=== PATIENT | female | born 1940 | race Caucasian/White ===

== ENCOUNTER 2020-01-24 11:46 | Outpatient (CLI) | payer MEDICARE, OTHER, SELFPAY ==
--- NOTE | ~2020-01-24 | XR_ITS ---
EXAMINATION: XR abdomen/kub 1V EXAM DATE: 01/24/2020 12:09 INDICATION: Constipation, abdominal pain. Bloating. TECHNIQUE: Frontal projection of the upper abdomen, frontal projection lower abdomen/pelvis for inter pretation. Comparison is made to prior examination from 06/17/2011. FINDINGS: There are cholecystectomy clips. There is expected amount of colonic stool and gas. No s mall bowel dilation, nonobstructive bowel gas pattern. There are no suspicious calcifications ident ified. There is no organomegaly suspected. Bilateral hip replacements. IMPRESSION: Unremarkable abdomen x-ray exam. Reviewed, dictated and finalized at location A. 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
== END 2020-01-24 11:47 | disposition home or self-care (01) ==
PROVIDERS: PCP Family Medicine; Visit Provider Physician Assistant
DX: K59.00 Constipation, unspecified (principal)
CPT/HCPCS: 74018

== ENCOUNTER 2020-10-13 10:54 | Emergency (ER) | payer MEDICARE, OTHER, SELFPAY ==
--- NOTE | ~2020-10-13 | XR_ITS ---
XR foot RT min 3V 10/13/2020 11:10 Indication: Right foot pain after recent fall Procedure: 4 views right foot Comparison: No prior studies for comparison. Findings: There is an acute minimally displaced extra-articular spiral fracture right fifth metatarsa l. Mild osteoarthritis of the first MTP joint. Osteopenia. There is mild polyarticular osteoarthritis . There is a small degenerative calcaneal enthesophyte. Impression: 1: Acute minimally displaced extra-articular spiral fracture right fifth metatarsal. Reviewed, dictated and finalized at location A. Impression: 1: Acute minimally displaced extra-articular spiral fracture right fifth metata rsal.
[2020-10-13 11:08] VITALS: BP 135/66; PULSE 78; RESP 16; TEMP 36.4; O2SAT 99
--- NOTE | 2020-10-13 12:00 | ED.GENADULT ---
HPI - General Adult General Chief complaint: Extremity Injury, Lower Stated complaint: rt foot injury Source: patient and RN notes reviewed Mode of arrival: ambulatory Limitations: no limitations History of Present Illness HPI narrative: 80-year-old female presents today with complaints of right foot pain, bruising, and swelling for the past 7 days. [place] reports falling out of the bathtub 1 week ago injuring RT foot, improvement in swelling and bruising, pain constant with bearing weight. Post-op shoe, brace, elevation, rest, and Tylenol last today at 08:00 with some relief. Hurts to bear weight. No radiation of pain. No numbness, tingling, or loss of mobility. Exacerbating factor applying weight. Denies inability to bear weight. Denies suspect foreign body. Denies fever or chills. The patient reports she has not been diagnosed with COVID-19. The patient reports she received 2 Moderna COVID-19 vaccines. The patient reports she is not waiting for the results of a COVID-19 lab test. The patient reports she does not have weakness, fatigue, or myalgia. The patient reports she does not have a new or worsening cough or shortness of breath. The patient reports she does not have any rhinorrhea, congestion, loss of taste, sore throat, nausea, vomiting, abdominal pain, and diarrhea. Denies recent traveling. Denies concerns for COVID-19 or exposures. At this time, the patient is not suspected of having COVID-19. Some parts of this dictation were generated by voice recognition software and may contain typographical and/or grammatical inaccuracies. Related Data Home Medications Medication Instructions Recorded Confirmed cholecalciferol (vitamin D3) 25 1,000 unit PO DAILY 04/07/19 mcg (1,000 unit) capsule multivitamin 1 tablet PO DAILY 04/07/19 Allergies Allergy/AdvReac Type Severity Reaction Status Date / Time No Known Allergies Allergy Unverified 01/24/20 10:58 Review of Systems Review of Systems: CONSTITUTIONAL: Denies fever, chills, sweats. EYES: Denies visual changes, redness, discharge. ENT: Denies rhinorrhea, congestion, sore throat, otalgia. CARDIOVASCULAR: Denies chest pain, palpitations, edema. RESPIRATORY: Denies dyspnea, wheezing, cough. GASTROINTESTINAL: Denies abdominal pain, nausea, vomiting, diarrhea. SKIN: Denies rash or itching. MUSCULOSKELETAL: Denies acute back pain or myalgia. Complaints of pain, bruising, and swelling to the right foot. NEUROLOGIC: Denies numbness or focal weakness. PSYCHIATRIC: Denies anxiety or depression. All other systems reviewed are negative, except as documented in HPI and below. [facility] Past Medical History Medical History Arthritis Benign reactive hypertension H/O Middleton's palsy Kidney stone Mixed hyperlipidemia Surgical History Surgical History H/O total hip arthroplasty R- with later revision L QUOC recent Hx laparoscopic cholecystectomy Hx of cataract extraction Social History Social History Social History: Smoking status: Never smoker Second hand tobacco smoke exposure: No Alcohol intake: current Drinks per week: 1 Substance use: never Substance use type: does not use Gender identity (if verbalized by the patient): Female Comments At time of signature, agree with the nurse past medical, surgical, social, and family history. There is relevant patient's history pertinent to the presenting complaint, no relevant family history pertinent to the presenting complaint. Exam Narrative: GENERAL: This is a well-nourished, well-developed patient, in no apparent distress. Ambulates with a limp favoring the right lower extremity. HEAD: Normocephalic, atraumatic. EYES: PERRL. Sclera clear/white. Vision is grossly intact. CARDIOVASCULAR: Regular rate and rhythm
== END 2020-10-13 12:28 | disposition home or self-care (01) ==
PROVIDERS: Emergency Provider Nurse Practitioner Family; PCP Family Medicine
DX: S92.351A Displaced fracture of fifth metatarsal bone, right foot, initial encounter for closed fracture (principal); W19.XXXA Unspecified fall, initial encounter; M19.90 Unspecified osteoarthritis, unspecified site; E78.2 Mixed hyperlipidemia
CPT/HCPCS: 73630; 99213; G0463

== ENCOUNTER → 2020-12-25 12:42 | Outpatient (CLI) | payer MEDICARE, OTHER, SELFPAY ==
--- NOTE | ~2020-12-25 | XR_ITS ---
EXAMINATION: XR foot RT min 3V DATE: 12/25/2020 13:31 INDICATION: Nondisplaced fracture of the fifth metatarsal TECHNIQUE: Dorsoplantar, lateral, and 2 oblique views of the right foot were obtained. COMPARISON: 11/13/2020, 10/13/2020 FINDINGS: There is continued remodeling of calcified callus at the distal aspect of the fifth metatar santa at the site of the previously described fracture. Bone alignment is near-anatomic. There is polya rticular osteoarthritis of many interphalangeal joints as well as at the first metatarsophalangeal christal int. No new fracture is identified. The soft tissues are unremarkable. A plantar calcaneal enthesophy te is noted. IMPRESSION: 1. . Metatarsal fracture with routine healing. Reviewed, dictated and finalized at location A.
== END ==
PROVIDERS: PCP Family Medicine; Visit Provider Orthopaedic Surgery
DX: S92.354G Nondisplaced fracture of fifth metatarsal bone, right foot, subsequent encounter for fracture with delayed healing (principal)
CPT/HCPCS: 73630

== ENCOUNTER → 2021-05-30 14:42 | Outpatient (CLI) | payer MEDICARE, OTHER, SELFPAY ==
--- NOTE | ~2021-05-30 | DEXA_ITS ---
Bone Density Report Name: TRENTON MANJARREZ Age: 80 Sex: Female Ethnicity: White Date of : 1940 Indication: osteopenia; prior fracture; hysterectomy;postmenopausal Referring Provider: SUPRIYA PATINO Study: Bone densitometry was performed. Exam Date: May 30, 2021 Accession number: [id number] Bone Density: Region BMD T-score Z-score Classification AP Spine (L1-L4) 0.956 -0.8 2.0 Normal World Health Organization criteria for BMD impression classify patients as: Normal (T-score at or above -1.0), Osteopenia (T-score between -1.0 and -2.5), or Osteoporosis (T-score at or below -2.5). Previous Exams: Region Exam Age BMD T-score BMD Change BMD Change Date g/cm2 vs Baseline vs Previous AP Spine(L1-L4) 05/30/2021 80 0.956 -0.8 -0.014 0.038* 06/11/2015 74 0.917 -1.2 -0.052* -0.052* 07/09/2011 70 0.969 -0.7 *Denotes significance at 95% confidence level, LSC for AP Spine = 0.022 g/cm2 Clinical Information Provided by Patient: Has had a low trauma fracture Has used the following medications: Vitamin D, MTV Has the following medical conditions: Hysterectomy Patient maximum height was 64 Menopause Age: 48 No regular weight bearing exercise Drinks caffeinated beverages Onset of menses at age 10 Number of children 3 Impression: The patient has normal bone mass. The patient has risk factors, including: previous fracture. No significant bone loss was observed. Discussion: BONE DENSITY IS ABOVE THE MINIMUM DESIRABLE LEVEL AT ALL SKELETAL SITES TESTED. This patient?s bone mineral density is above the minimum desirable level (T-score -1.0 or better) at all sites measured. The patient should follow a healthful lifestyle (good nutrition with adequate calcium and vitamin D, and appropriate weight-bearing exercise). Follow-Up: Consider repeating this study in 5 years or sooner if there is some new clinical indication. Reported by: MAU on 05/30/2021 3:01:00 PM. Reviewed, dictated and finalized at location ACecile [facility]
--- NOTE | ~2021-05-30 | MM_ITS ---
EXAMINATION: MM screening christos BI w hailey HISTORY: Screening mammogram TECHNIQUE: Craniocaudal and mediolateral oblique 3-D tomosynthesis images were obtained and synthetic 2-D images were generated. CAD analysis was submitted and interpreted. COMPARISON: 01/21/2014, 07/09/2011 bilateral screening mammogram examinations BREAST PARENCHYMAL COMPOSITION: There are scattered areas of fibroglandular density. FINDINGS: Stable mild fibroglandular asymmetry. Stable small circumscribed node deep in the posterior upper right breast on MLO view since 07/09/2011. There is no evidence of suspicious mass, calcificatio n, or architectural distortion to suggest malignancy in either breast. There has been no suspicious i nterval change. IMPRESSION: 1. No mammographic evidence of malignancy. 2. Recommend routine screening mammography in one year. BI-RADS Category 2: Benign finding(s). Reviewed, dictated and finalized at location A.
== END ==
PROVIDERS: PCP Family Medicine; Visit Provider Family Medicine
DX: Z12.31 Encounter for screening mammogram for malignant neoplasm of breast (principal); Z78.0 Asymptomatic menopausal state
CPT/HCPCS: 77063; 77067; 77080

== ENCOUNTER 2021-11-04 13:53 | Outpatient (CLI) | payer MEDICARE, OTHER, SELFPAY ==
--- NOTE | ~2021-11-04 | XR_ITS ---
XR chest 2V DATE: 11/04/2021 14:17 INDICATION: Cough, wheezing and shortness of breath for 3 weeks. History of hypertension. TECHNIQUE: 2 views COMPARISON: 02/03/2018 two-view chest FINDINGS: Normal heart size. No hilar or mediastinal enlargement. No pulmonary infiltrate or consolid ation, pleural effusion or pulmonary vascular congestion or pneumothorax. Mild bilateral pulmonary hy perinflation. Diffuse osteopenia. Diffuse hepatic skeletal hyperostosis involving particularly the lower thoracic s pine Status post cholecystectomy. IMPRESSION: No active cardiopulmonary disease or significant change since 02/03/2018 Reviewed, dictated and finalized at location B.
== END 2021-11-04 13:54 | disposition home or self-care (01) ==
PROVIDERS: PCP Family Medicine; Visit Provider Physician Assistant
DX: R06.2 Wheezing (principal)
CPT/HCPCS: 71046

== ENCOUNTER 2022-03-22 11:06 | Emergency (ER) | payer MEDICARE, OTHER, SELFPAY ==
--- NOTE | 2022-03-22 11:09 | ED.URI ---
HPI - URI/Sore Throat General Chief Complaint: Upper Respiratory Infection Stated Complaint: HEAD COLD/COUGH/INDIGESTION/DIARRHEA Time Seen by Provider: 03/22/22 11:09 Source: patient and RN notes reviewed History of Present Illness HPI Narrative: Patient is an 81-year-old female who presents to the Urgent Care with complaints of productive cough, loose stools. Patient states that the loose stool started after taking the cough medication and Mucinex. Patient states the Imodium does improve the loose stools which occur approximately once per day. Patient denies any abdominal pain, shortness of breath or chest discomfort. Denies any known fevers, nausea or vomiting. Patient denies any ill exposures. No other acute complaints. No acute distress noted. Patient aware of plan of care. Some parts of this dictation were generated by voice recognition software and may contain typographical and/or grammatical inaccuracies. Related Data Home Medications Medication Instructions Recorded Confirmed cholecalciferol (vitamin D3) 25 1,000 unit PO DAILY 04/07/19 03/22/22 mcg (1,000 unit) capsule multivitamin 1 tablet PO DAILY 04/07/19 03/22/22 budesonide 160 mcg-glycopyr 9 2 inh inhalation BID 11/04/21 mcg-formot 4.8 mcg/actuation HFA inhaler ([employer]) Allergies Allergy/AdvReac Type Severity Reaction Status Date / Time No Known Allergies Allergy Unverified 11/04/21 13:02 Review of Systems Review of Systems: CONSTITUTIONAL: Denies fever, chills, or sweats. EYES: Denies visual changes, redness, or discharge. ENT: Reports postnasal drainage and congestion CARDIOVASCULAR: Denies chest pain, palpitations, or edema. RESPIRATORY: Reports productive cough without dyspnea GASTROINTESTINAL: Reports 1 loose stool per day GENITOURINARY: Denies dysuria or hematuria. SKIN: Denies rash or itching. MUSCULOSKELETAL: Denies back pain, joint pain, or myalgia. NEUROLOGIC: Denies headache, numbness, or weakness. All other systems reviewed are negative, except as documented in HPI. [facility] Past Medical History Medical History Arthritis Benign reactive hypertension H/O Middleton's palsy Kidney stone Mixed hyperlipidemia Nondisp fracture of fifth right metatarsal bone with delayed healing Surgical History Surgical History H/O total hip arthroplasty R- with later revision L QUOC recent H/O: hysterectomy Hx laparoscopic cholecystectomy Hx of cataract extraction S/P right knee arthroscopy Social History Social History (Updated 11/04/21 @ 13:04 by Fernanda Joy) Social History: Smoking status: Never smoker Second hand tobacco smoke exposure: No Alcohol intake: current Alcohol use details: Occasionally Substance use: never Substance use type: does not use Gender identity (if verbalized by the patient): Female Sexual Orientation (if Verbalized by the Patient): Straight or Heterosexual Comments At the time of my signature, I reviewed and agree with the nursing past medical, surgical, social, and family history. There is no relevant family history pertinent to the patient complaint. Exam Narrative: GENERAL: This is a well-nourished, well-developed patient, in no apparent distress. HEAD: normocephalic, atraumatic. EYES: PERRL. Sclera clear/white. Vision is grossly intact. EARS: External ears normal, auditory canals clear and without drainage, TMs normal without perforation. Hearing grossly intact. NOSE: External nose normal with no obvious nasal discharge, nares without redness, clear rhinorrhea. THROAT: Mucous membranes moist, posterior pharynx clear. Moderate postnasal drainage NECK: Neck supple, non-tender without lymphadenopathy CARDIOVASCULAR: Regular rate and rhythm without murmurs, gallops, or rubs. RESPIRATORY: Inspiratory wheezes throughout with wheezing cough noted on exam [facility]
[2022-03-22 11:15] VITALS: BP 133/68; PULSE 107; RESP 16; TEMP 36.9; O2SAT 98
== END 2022-03-22 11:35 | disposition home or self-care (01) ==
PROVIDERS: Emergency Provider Nurse Practitioner Family; PCP Family Medicine
DX: J40 Bronchitis, not specified as acute or chronic (principal); M19.90 Unspecified osteoarthritis, unspecified site; E78.2 Mixed hyperlipidemia; I10 Essential (primary) hypertension
CPT/HCPCS: 99213; G0463

== ENCOUNTER 2023-02-01 11:08 | Emergency (ER) | payer MEDICARE, OTHER, SELFPAY ==
[2023-02-01 11:30] VITALS: BP 114/58; PULSE 84; RESP 16; TEMP 36.6; O2SAT 98
--- NOTE | 2023-02-01 11:45 | ED.EYEPROB ---
HPI - Eye Problem General Chief complaint: Eye Problems Stated complaint: Double Vision Time Seen by Provider: 02/01/23 11:45 Source: patient, RN notes reviewed and old records reviewed Mode of arrival: ambulatory Limitations: no limitations History of Present Illness HPI Narrative: A 82-year-old female presents with complains of seeing double vision that started Thursday. Patient denies any type of injury, patient denies headache, patient denies eye pain, eye drainage or eye irritation. Patient has a history of cataracts Related Data Home Medications Medication Instructions Recorded Confirmed cholecalciferol (vitamin D3) 25 1,000 unit PO DAILY 04/07/19 02/01/23 mcg (1,000 unit) capsule multivitamin 1 tablet PO DAILY 04/07/19 02/01/23 Allergies Allergy/AdvReac Type Severity Reaction Status Date / Time No Known Allergies Allergy Unverified 01/02/23 09:23 Review of Systems Review of Systems: All systems reviewed & are unremarkable except as noted in HPI and below Constitutional: Constitutional: Reports no additional constitutional complaints Eyes: Eyes: Reports as per HPI, Denies exophthalmos, Reports change in vision, Denies decreased night vision, Reports diplopia, Denies eye discharge, Denies loss of peripheral vision and Denies loss of vision ENT: Reports system reviewed and no additional complaints, except as documented Cardiovascular: Cardiovascular: Reports no additional cardiovascular complaints Respiratory: Respiratory: Reports no additional respiratory complaints Neurologic: Denies numbness and Reports Other visual disturbances [facility] Past Medical History Medical History Acute pain of right knee Aftercare following joint replacement surgery Arthritis Arthritis of knee Back pain at L4-L5 level Benign reactive hypertension Bruit of right carotid artery Dietary counseling and surveillance (07/16/17) E. 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 Primary osteoarthritis of right knee Pyelonephritis Recurrent UTI Sprain of right hip Surgical History Surgical History H/O total hip arthroplasty R- with later revision L QUOC recent H/O: hysterectomy Hx laparoscopic cholecystectomy Hx of cataract extraction Presence of both artificial hip joints Presence of right artificial hip joint S/P right knee arthroscopy Status post total replacement of left hip Social History Social History Social History: Smoking status: Never smoker Second hand tobacco smoke exposure: No Alcohol intake: current Alcohol use details: Occasionally Substance use: never Substance use type: does not use Lack of Transportation: No Lack of Food: Never True Current Housing: I Have Housing Concerned About Future Housing: No Difficulty Paying Gas/Electric Bills: No Difficulty Paying for Meds: No Currently Unemployed: YES Difficulty w/ Childcare or Family Care: No Living arrangements: alone Occupation/Education: retired Gender identity (if verbalized by the patient): Female Sexual Orientation (if Verbalized by the Patient): Straight or Heterosexual Spiritual care concerns: No Agree to blood products: Yes Comments At the time of my signature, I reviewed and agree with the nursing past medical, surgical, social, and family history. There is no relevant family history pertinent to the patient complaint. Exam Const: General: cooperative, healthy appearing, no acute distress and well nourished Nutritional Appearance: well nourished Orientation/consciousness: patien
== END 2023-02-01 12:03 | disposition home or self-care (01) ==
PROVIDERS: Emergency Provider Registered Nurse; PCP Family Medicine
DX: H53.2 Diplopia (principal); I10 Essential (primary) hypertension; E78.2 Mixed hyperlipidemia; M81.0 Age-related osteoporosis without current pathological fracture; M16.0 Bilateral primary osteoarthritis of hip; M17.11 Unilateral primary osteoarthritis, right knee; Z96.653 Presence of artificial knee joint, bilateral
CPT/HCPCS: 99212; G0463

== ENCOUNTER 2023-02-11 06:33 | Outpatient (CLI) | payer MEDICARE, OTHER, SELFPAY ==
--- NOTE | ~2023-02-11 | MR_ITS ---
MRI of the brain Clinical History: Diplopia Technique: Axial and sagittal T1-weighted images were acquired. These were followed by axial T2-weigh jose eduardo, diffusion weighted, gradient, and FLAIR images. Coronal and axial thin cut T1-weighted and T2-we ighted images were also acquired through the internal auditory canals. Following intravenous administ ration of 16 cc MultiHance gadolinium, T1-weighted fat-sat imaging was performed through the brain in the axial and coronal planes. Thin cut T1-weighted postcontrast imaging was performed through the in ternal auditory canals in the coronal and axial planes. Findings: There is no acute infarct, intracranial hemorrhage, or mass lesion. Moderate chronic white matter changes are present throughout the periventricular white matter bilaterally. Ventricles and subarachnoid spaces are minimally prominent. Orbits are unremarkable. Paranasal sinuse s and mastoid air cells are clear. Major intracranial flow voids are intact. Sagittal midline structures are intact. No abnormal mass lesion seen at the internal auditory canals or cerebellopontine angle regions. No abnormal postcontrast enhancement identified. IMPRESSION: Moderate chronic microvascular ischemic change, otherwise unremarkable exam. Reviewed, dictated and finalized at location M. ED HEALTH TEACHER
== END 2023-02-11 06:34 | disposition home or self-care (01) ==
PROVIDERS: PCP Family Medicine; Visit Provider Family Medicine
DX: H53.2 Diplopia (principal)
CPT/HCPCS: 70553; A9577

== ENCOUNTER 2024-07-12 15:49 | Outpatient (CLI) | payer MEDICARE, OTHER, SELFPAY ==
--- NOTE | ~2024-07-12 | CT_ITS ---
EXAMINATION: CT LE RT wo con DATE: 07/12/2024 16:32 INDICATION: Preoperative planning. Right knee osteoarthritis. TECHNIQUE: High resolution computed tomography (CT) of the right lower extremity from the hip through the ankle was performed without intravenous contrast. Additional sagittal and coronal reconstruction s were performed. Automated exposure control and iterative reconstruction technique were employed. Th e dose-length product was 1816.99 mGy-cm. 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 No periprosthetic lucency to suggest loosening or infection. Essentially nondisplaced chron ic nonunited avulsion fracture fragment extending across the distal aspect of the lateral malleolus. No acute fracture Tricompartmental osteoarthritis at the right knee with severe joint space narrowing on the prior weightbearing radiographs in the medial compartment. There is subarticular cystlike and sclerotic changes along the weightbearing medial femoral condyle and medial tibial plateau consisten t with overlying high-grade chondral malacia. Moderate marginal osteophytes in medial compartment. Th ere is additional mild osteoarthritis with small marginal osteophytes in the lateral and patellofemor al compartments. Minimal right knee joint effusion at the suprapatellar pouch. Severe likely secondar y osteoarthritis at the ankle joint. Additional polyarticular osteoarthritis in the right foot, moder ate severity at the calcaneocuboid, naviculocuneiform, second-fifth tarsal metatarsal and first metat arsophalangeal joints and mild at the remaining joints in the right foot. Moderate-sized plantar calc aneal spur. No pathologically enlarged right pelvic or inguinal lymphadenopathy. IMPRESSION: 1. 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 2. 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 3. 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 Reviewed, dictated and finalized at location A. IMPRESSION: 1. 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 2. Chronic nonunited avulsion fracture fragment at the distal tip of the latera l malleolus likely secondary severe osteoarthritis at the ankle joint. 3. 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
--- OUTSIDE RECORDS SUMMARY | 2024-07-12 15:55 | XMS_ITS | Clinical Summary ---
Author Organization [facility] Address [address] [place] [address] Phone Care Team Providers Care Vice President Industrial Relations Name Role Phone Unavailable Primary Care Provider Unavailabl e Medications albuterol sulfate 90 mcg/Actuation inhaler INHALE 1 PUFF BY MOUTH EVERY 4 HOURS NEEDED FOR SHORTNESS OF BREATH OR WHEEZING 6.7 Gram 11/04/2021 2:36 PM CDT 2 Active fluticasone propionate (FLONASE) 50 mcg/spray [place], Suspension nasal inhaler INSTILL 1 SPRAY INTO EACH NOSTRIL TWICE DAILY 16 Gram 11/04/2021 2:36 PM CDT 2 Active benzonatate (TESSALON) 100 mg capsule TAKE 2 CAPSULES (200 MG) THREE TIMES PER DAY NEEDED FOR COUGH 30 Capsule 11/04/2021 2:36 PM CDT 2 Active albuterol (PROVENTIL,VENTOL IN) 2.5 mg /3 mL (0.083 %) Solution for Nebulization Inhale the contents of one vial (3 mL) every 6 hours as directed 75 mL 03/22/2022 12:28 PM MEDICAL INSTRUMENT CABLE FABRICATOR 3 Active azithromycin (ZITHROMAX) 250 mg tablet Take two tablets by mouth on day 1, then take one tablet by mouth on days 2-5 6 Tablet 03/22/2022 12:28 PM MEDICAL INSTRUMENT CABLE FABRICATOR 3 Active benzonatate (TESSALON) 100 mg capsule Take 1 Capsule (100 mg) by mouth 3 times daily as needed for cough 20 Capsule 03/22/2022 12:28 PM MEDICAL INSTRUMENT CABLE FABRICATOR 3 Active predniSONE (DELTASONE) 20 mg tablet Take 1 Tablet (20 mg) by mouth daily for 5 days 5 Tablet 03/22/2022 12:28 PM MEDICAL INSTRUMENT CABLE FABRICATOR 3 Active codeine-guaiFENes in (ROBITUSSIN-AC) 10-100 mg/5 mL Liquid Take 5 mL by mouth every 6 hours as needed FOR COLD SYMPTOMS. 237 mL 04/04/2022 2:19 PM MEDICAL INSTRUMENT CABLE FABRICATOR 3 Active celecoxib (CeleBREX) 200 mg capsule Take 1 Capsule (200 mg) by mouth 2 times daily. 180 Capsule 4 Active benzonatate (TESSALON) 100 mg capsule Take 2 Capsules (200 mg) by mouth 3 times daily as needed for cough. 60 Capsule 4 Active fluticasone propionate (FLONASE) 50 mcg/spray [place], Suspension nasal inhaler ADMINISTER 1 SPRAY IN EACH NOSTRIL EVERY 12 HOURS. 16 Gram 4 Active Immunizations Immunization Administration Dates Next Due (AREXVY)(60 YR UP) RSV, ELLIS MBINANT, PROTEIN SUBUNIT RSVPREF, ADJUVANT RECONSTITUTED, 0.5 ML, PF 05/24/2024 (COMIRNATY)(12 YR UP) COVID- 19 VACCINE, MRNA, SPIKE PROTEIN, LNP, DOMINGA(PF) 30 MCG/0.3 ML IM SUSP 01/14/2024,01/05/2023 (SHINGRIX)(50 YRS UP) ZOSTER VACCINE RECOMBINANT, 0.5 ML, IM 08/27/2022 INFLUENZA VACCINE HIGH DOSE QUADRIVALENT 65 YR UP PF IM 12/10/2022 INFLUENZA VACCINE HIGH DOSE TRIVALENT SPLIT VIRUS, (65 YR UP), 0.5ML (PF), IM 01/14/2024 Social History Tobacco Use Types Packs/Day Years Used Date Smoking Tobacco: Never Assessed Comments Unknown Sex and Gender Information Value Date Recorded Sex Assigned at Not on file Legal Sex Female 5:02 AM CDT Gender Identity Not on file Sexual Orientation Not on file Plan of Treatment Health Maintenance Due Date Last Done Comments DTAP/TDAP/TD VACCINES (1 - Tdap) 1959 PNEUMOCOCCAL VACCINE 50+ YEA RS (1 of 1 - PCV) 1988 OSTEOPOROSIS SCREENING 07/26/2003 ZOSTER VACCINE (2 of 2) 10/22/2022 08/27/2022 COVID-19 Vaccine (3 - season) 07/13/202409/2023, 01/05/2023 INFLUENZA VACCINE Completed 01/14/2024, 12/10/2022 RSV VACCINE (60+ or ) Completed 05/24/2024 Insurance RX [employer]
--- OUTSIDE RECORDS SUMMARY | 2024-07-12 15:55 | XMS_ITS | Encounter Summary ---
Author Organization [facility] Address [address] [place] [address] Care Team Providers Care Separator Operator Name Role Phone Unavailable Primary Care Provider Unavailabl e Encounter Details Date Type Department Care Team (Late st Contact Info) Description 06/29/2017 Lab Requisition [facility] General Laboratory Services [address] [address] [place] [address] Allen Martinez MD [address] [place] [address] Encounter for general adult medical examination without abnormal findings Social History Tobacco Use Types Packs/Day Years Used Date Smoking Tobacco: Never Assessed Comments Unknown Sex and Gender Information Value Date Recorded Sex Assigned at Not on file Legal Sex Female 5:02 AM CDT Gender Identity Not on file Sexual Orientation Not on file documented as of this encounter Plan of Treatment Not on file documented as of this encounter Procedures Procedure Name Priority Date/Time Associated Diagnosis Comments CBC WITH DIFFERENTIAL Routine 06/29/2017 6:24 AM CDT Encounter for general adult medical examination without abnormal findings VITAMIN D 25 HYDROXY Routine 06/29/2017 6:24 AM CDT Encounter for general adult medical examination without abnormal findings TSH Routine 06/29/2017 6:24 AM CDT Encounter for general adult medical examination without abnormal findings T4 FREE Routine 06/29/2017 6:24 AM CDT Encounter for general adult medical examination without abnormal findings LIPID PANEL Routine 06/29/2017 6:24 AM CDT Encounter for general adult medical examination without abnormal findings COMPREHENSIVE METABOLIC PANEL Routine 06/29/2017 6:24 AM CDT Encounter for general adult medical examination without abnormal findings documented in this encounter Results * VITAMIN D 25 HYDROXY (06/29/2017 6:24 AM CDT) Pathologist [facility] VITAMIN D TOTAL (25OH) 41 30 - 100 ng/mL 06/29/2017 10:35 AM CDT [facility] Entrec [facility] Blood Venipuncture / Unknown 06/29/2017 6:24 AM CDT 06/29/2017 8:42 AM CDT Narrative [facility] - 06/29/2017 10:35 AM CDT Interpretive Data Chart: Deficient: 0 - 20 ng/mL Insufficient: 21 - 29 ng/mL Sufficient: 30 - 100 ng/mL Increased Risk of Hypercalciuria: >100 ng/mL Toxic: >150 ng/mL Allen Martinez MD CHEMISTRY ORDERABLES Final R esult Performing Organization Address [facility]/ZIP Co de Phone Number [facility]NH# [id number] [address] [place] [address] * TSH (06/29/2017 6:24 AM CDT) Pathologist [facility] TSH 2.22 0.27 - 4.20 uIU/mL 06/29/2017 10:21 AM CDT [facility] Entrec [facility] Blood Venipuncture / Unknown 06/29/2017 6:24 AM CDT 06/29/2017 8:42 AM CDT Allen Martinez MD CHEMISTRY ORDERABLES Final R esult Performing Organization Address [facility]/ZIP Co de Phone Number [facility]# [id number] [address] [place] [address] * T4 FREE (06/29/2017 6:24 AM CDT) Pathologist [facility] T4 FREE 1.19 0.90 - 1.70 ng/dL 06/29/2017 10:21 AM CDT [facility] LABORATORY SERVICES - [facility] Blood Venipuncture / Unknown 06/29/2017 6:24 AM CDT 06/29/2017 8:42 AM CDT Allen Martinez MD CHEMISTRY ORDERABLES Final R esult [employer] SERVICES [facility] CLIA# [id number] [address] [place] [address] * (ABNORMAL) COMPREHENSIVE METABOLIC PANEL (06/29/2017 6:24 AM CDT) SODIUM 143 136 - 145 mmol/L 06/29/2017 10:16 AM [facility] [employer] SERVICES - . [facility] POTASSIUM 3.6 3.5 - 5.0 mmol/L 06/29/2017 10:16 AM [facility] [employer] - . [facility] CHLORIDE 101 98 - 107 mmol/L 06/29/2017 10:16 AM T [employer] SERVICES - . [facility] CO2 30(H) 22 - 29 mmol/L 06/29/2017 10:16 AM T [employer] SERVICES - . [facility] CALCIUM 9.1 8.6 - 10.2 mg/dL 06/29/2017 10:16 AM T [employer] SERVICES - . [facility] BUN 10 8 - 23 mg/dL 06/29/2017 10:16 AM [facility] [employer] SERVICES - . [facility] CREATININE 0.78 0.51 - 0.95 mg/dL 06/29/2017 10:16 AM T [email or web address] LABORATORY SERVICES - . [facility] Comment: The GFR result is not clinically significant on patients <18 or >70 years of age. GLUCOSE 86 74 - 99 mg/dL 06/29/2017 10:16 AM T [employer] SERVICES - . [facility] TOTAL PROTEIN 6.8 6.7 - 8.6 g/dL 06/29/2017 10:16 AM [employer] SERVICES - . [facility] ALBUMIN 3.5 3.5 - 5.2 g/dL 06/29/2017 10:16 AM [employer] SERVICES - . [facility] BILIRUBIN TOTAL 0.4 0.2 - 1.1 mg/dL 06/29/2017 10:16 AM [facility] ALKALINE PHOSPHATASE 92 35 - 104 U/L 06/29/2017 10:16 AM [facility] AST 25 <33 U/L 06/29/2017 10:16 AM [facility] ALT 26 <34 U/L 06/29/2017 10:16 AM [facility] GFR >60 mL/min/1.7 3 sq meter 06/29/2017 10:16 AM [facility] Comment: eGFR has not been validated for use in the elderly (> 70 years of age), women, patients with serious co-morbid conditions, or persons with extremes of body size or muscle mass and should also be interpreted with caution in patients with acute kidney failure, dialysis dependent patients, patients reporting exceptional dietary intake (e.g. vegetarian diet, high protein diets, creatine supplementation), and patients with severe liver disease. Based on National Kidney Disease Education Program If patient is , please refer to the GFR result. GFR, >60 mL/min/1.7 3 sq meter 06/29/2017 10:16 AM [facility] Entrec [facility] ANION GAP 12 8 - 16 mmol/L 06/29/2017 10:16 AM [facility] Blood Venipuncture / Unknown 06/29/2017 6:24 AM CDT 06/29/2017 8:42 AM CDT Narrative [facility] - 06/29/2017 10:16 AM CDT Samples containing indocyanine green cause interferences on Total and/or Direct Bilirubin and must not be measured. us Allen Martinez MD CHEMISTRY ORDERABLES Final R esult [facility]# [id number] [address] [place] [place] [address] * (ABNORMAL) LIPID PANEL (06/29/2017 6:24 AM CDT) CHOLESTEROL 136 <200 mg/dL 06/29/2017 10:16 AM [facility] Entrec [facility] TRIGLYCERIDE 165(H) <150 mg/dL 06/29/2017 10:16 AM [facility] Entrec [facility] HDL 35(L) 40 - 59 mg/dL 06/29/2017 10:16 AM [facility] LDL CALCULATED 68 <100 mg/dL 06/29/2017 10:16 AM [facility] Entrec [facility] NON-HDL CHOLESTEROL 101 <130 mg/dL 06/29/2017 10:16 AM [facility] Entrec [facility] Blood Venipuncture / Unknown 06/29/2017 6:24 AM T 06/29/2017 8:42 AM CDT [facility] Entrec [facility] - 06/29/2017 10:16 AM CDT TOTAL CHOLESTEROL mg/dL Desirable <200 Borderline high 200-239 High >=240 TRIGLYCERIDES mg/dL Normal <150 Borderline high 150-199 High 200-499 Very high >=500 HDL CHOLESTEROL mg/dL Low <40 Normal 40-59 Desirable >=60 NON HDL CHOLESTEROL mg/dL Optimal <130 Near Optimal 130-159 Borderline High 160-189 Very High >=190 Calculated LDL mg/dL Optimal <100 Near Optimal 100-129 Borderline High 130-159 High 160-189 Very High >=190 ATPIII Guidelines Reference Ranges for Lipid Panels (NCEP/AMA) us Allen Martinez MD CHEMISTRY ORDERABLES Final R esult [facility]# [id number] [address] [place] [address] * (ABNORMAL) CBC WITH DIFFERENTIAL (06/29/2017 6:24 AM CDT) Pathologist [facility] WBC 5.9 4.0 - 9.8 K/uL 06/29/2017 10:50 AM T [facility] Entrec [facility] RBC 3.90 3.90 - 4.90 M/uL 06/29/2017 10:50 AM [facility] Entrec [facility] HEMOGLOBIN 11.2(L) 11.8 - 14.8 g/dL 06/29/2017 10:50 AM CDT [email or web address] LABORATORY SERVICES - [facility] HEMATOCRIT 35.0(L) 35.5 - 44.0 % 06/29/2017 10:50 AM CDT [email or web address] LABORATORY SERVICES - . [facility] MCV 89.7 82.0 - 99.0 fL 06/29/2017 10:50 AM CDT [email or web address] LABORATORY SERVICES - [facility] MCH 28.7 27.2 - 32.6 pg 06/29/2017 10:50 AM CDT [email or web address] LABORATORY SERVICES - [facility] MCHC 32.0 31.5 - 35.5 g/dL 06/29/2017 10:50 AM CDT [email or web address] LABORATORY SERVICES - [facility] RDW 13.7 11.5 - 14.5 % 06/29/2017 10:50 AM CDT [email or web address] LABORATORY SERVICES - [facility] RDW-STDEV 45.1 37.1 - 48.7 fL 06/29/2017 10:50 AM [email or web address] LABORATORY SERVICES - [facility] PLATELETS 327 140 - 350 K/uL 06/29/2017 10:50 AM [email or web address] LABORATORY SERVICES - . [facility] MPV 10.6 9.3 - 12.4 fL 06/29/2017 10:50 AM [email or web address] LABORATORY SERVICES - [facility] NEUTROPHILS 58 % 06/29/2017 10:50 AM CDT [email or web address] LABORATORY SERVICES - [facility] LYMPHOCYTES 26 % 06/29/2017 10:50 AM [email or web address] LABORATORY SERVICES - [facility] MONOCYTES 10 % 06/29/2017 10:50 AM [email or web address] LABORATORY SERVICES - [facility] EOSINOPHILS 6 % 06/29/2017 10:50 AM CDT [email or web address] LABORATORY SERVICES - [facility] BASOPHILS 1 % 06/29/2017 10:50 AM CDT [email or web address] LABORATORY SERVICES - [facility] IMMATURE GRANULOCYTES 0 % 06/29/2017 10:50 AM CDT [email or web address] LABORATORY SERVICES - [facility] NEUTROPHIL ABSOLUTE 3.41 1.90 - 7.00 K/uL 06/29/2017 10:50 AM CDT [email or web address] LABORATORY SERVICES - [facility] LYMPHOCYTE ABSOLUTE 1.52 0.70 - 4.50 K/uL 06/29/2017 10:50 AM CDT [email or web address] LABORATORY SERVICES - [facility] MONOCYTE ABSOLUTE 0.58 0.10 - 1.30 K/uL 06/29/2017 10:50 AM CDT [email or web address] LABORATORY SERVICES - [facility] EOSINOPHIL ABSOLUTE 0.34 0.00 - 0.70 K/uL 06/29/2017 10:50 AM CDT [facility] LABORATORY SERVICES - . [facility] BASOPHILS ABSOLUTE 0.03 0.00 - 0.20 K/uL 06/29/2017 10:50 AM CDT [facility] LABORATORY SERVICES - . [facility] IMMATURE GRANULOCYTES ABSOLUTE 0.02 0.00 - 0.03 K/uL 06/29/2017 10:50 AM CDT [facility] LABORATORY SERVICES - [facility] Blood Venipuncture / Unknown 06/29/2017 6:24 AM CDT 06/29/2017 8:42 AM CDT Allen Martinez MD HEMATOLOGY ORDERABLES Final Result [facility] [id number] [address] [place] [address] documented in this encounter Visit Diagnoses Diagnosis Encounter for general adult medical examination without abnormal findings Routine general medical examination at a health care facility documented in this encounter
--- OUTSIDE RECORDS SUMMARY | 2024-07-12 15:55 | XMS_ITS | Encounter Summary ---
Author Organization [employer] Address [address] [place] [address] Care Team Providers Care Supervising Broker Name Role Phone Unavailable Primary Care Provider Unavailabl e Encounter Details Date Type Department Care Team (Late st Contact Info) Description 07/06/2017 Lab Requisition [facility] Instructure Laboratory Services [address] [place] [address] Allen Martinez MD [address] [place] [address] Essential (primary) hypertension Social History Tobacco Use Types Packs/Day Years [...] Procedure Name Priority Date/Time Associated Diagnosis Comments BRAIN NATRIURETIC PEPTIDE, BNP OR PROBNP Routine 07/06/2017 7:12 AM CDT Essential (primary) hypertension BASIC METABOLIC PANEL Routine 07/06/2017 7:12 AM CDT Essential (primary) hypertension documented in this encounter Results * BASIC METABOLIC PANEL (07/06/2017 7:12 AM CDT) SODIUM 139 136 - 145 mmol/L 07/06/2017 11:27 AM CDT [employer] LABORATORY SERVICES - [facility] POTASSIUM 4.0 3.5 - 5.0 mmol/L 07/06/2017 11:27 AM CDT [employer] LABORATORY SERVICES - . [facility] CHLORIDE 98 98 - 107 mmol/L 07/06/2017 11:27 AM CDT [employer] LABORATORY SERVICES - . [facility] CO2 27 22 - 29 mmol/L 07/06/2017 11:27 AM CDT [facility] LABORATORY SERVICES - [facility] CALCIUM 9.4 8.6 - 10.2 mg/dL 07/06/2017 11:27 AM [facility] LABORATORY [facility] - [facility] BUN 17 8 - 23 mg/dL 07/06/2017 11:27 AM [facility] CREATININE 0.80 0.51 - 0.95 mg/dL 07/06/2017 11:27 AM [facility] [employer] [facility] Comment: The GFR result is not clinically significant on patients <18 or >70 years of age. GLUCOSE 80 74 - 99 mg/dL 07/06/2017 11:27 AM [facility] [employer] [facility] GFR >60 mL/min/1.7 3 sq meter 07/06/2017 11:27 AM [facility] [employer] [facility] Comment: eGFR has not been validated for [...] result. GFR, >60 mL/min/1.7 3 sq meter 07/06/2017 11:27 AM T [facility] [employer] [facility] ANION GAP 14 8 - 16 mmol/L 07/06/2017 11:27 AM [facility] [employer] [facility] Blood Venipuncture / Unknown 07/06/2017 7:12 AM CDT 07/06/2017 10:15 AM CDT us Allen Martinez MD CHEMISTRY ORDERABLES Final R esult [facility] [employer] [facility]# [id number] [address] [facility] [place] [address] * BRAIN NATRIURETIC PEPTIDE, BNP OR PROBNP (07/06/2017 7:12 AM CDT) PROBNP, N TERMINAL <50 <449 pg/mL 2017 11:27 AM CDT [facility] [employer] [facility] Comment: Reference values for screening purposes based on palletizer's recommendation: Patients less than 75 years: <125 pg/mL Patients 75 years and older: <450 pg/mL Reference values for determination of acute congestive heart failure in dyspneic patients based on PRIDE study (Am J Cardiol 2005;95:948): Patients less than 50 years: <450 pg/mL (Negative predictive value= 99%) Patients 50 years and older: <900 pg/mL (Negative predictive value= 92%) Rule out cutpoint, all ages: <300 pg/mL (Negative predictive value= 99%) Blood Venipuncture / Unknown 07/06/2017 7:12 AM CDT 07/06/2017 10:15 AM CDT us Allen Martinez MD CHEMISTRY ORDERABLES Final R esult [facility] [employer] [facility]# [id number] [address] [facility] [address] documented in this encounter Visit Diagnoses Diagnosis Essential (primary) hypertension Unspecified essential hypertension documented in this encounter
[2024-07-12 16:09] LABS: Hematocrit 43.5 % (37.0-47.0); Hemoglobin 14.2 g/dL (12.0-15.0)
[2024-07-12 16:21] LABS: Albumin Level 4.4 g/dL (3.5-5.1); Estimated Glomerular Filt Rate 60; Glucose 127 mg/dL (65-110)
== END 2024-07-12 15:50 | disposition home or self-care (01) ==
PROVIDERS: PCP Family Medicine; Visit Provider Orthopaedic Surgery
DX: M17.11 Unilateral primary osteoarthritis, right knee (principal); E78.2 Mixed hyperlipidemia; S82.61XA Displaced fracture of lateral malleolus of right fibula, initial encounter for closed fracture; M19.071 Primary osteoarthritis, right ankle and foot; X58.XXXA Exposure to other specified factors, initial encounter
CPT/HCPCS: 36415; 73700; 82040; 82565; 82947; 85014; 85018

== ENCOUNTER 2024-08-15 12:12 | Outpatient (CLI) | payer MEDICARE, OTHER, SELFPAY ==
--- OUTSIDE RECORDS SUMMARY | 2024-08-15 13:34 | XMS_ITS | Encounter Summary ---
Author Organization [employer] Address [address] [place] [address] Care Team Providers Care Survey Researcher Name Role Phone Unavailable Primary Care Provider Unavailabl e Encounter Details Date Type Department Care Team (Late st Contact Info) Description 07/06/2017 Lab Requisition [facility] [employer] Laboratory Services [address] [employer] [address] [place] [address] Allen Martinez MD [address] [place] [address] Essential (primary) hypertension Social History [...] - 145 mmol/L 07/06/2017 11:27 AM CDT [employer] LABORATORY SERVICES - [facility] POTASSIUM 4.0 3.5 - 5.0 mmol/L 07/06/2017 11:27 AM CDT [facility] LABORATORY SERVICES - . [facility] CHLORIDE 98 98 - 107 mmol/L 07/06/2017 11:27 AM CDT [facility] LABORATORY SERVICES - . [facility] CO2 27 22 - 29 mmol/L 07/06/2017 11:27 AM CDT [facility] LABORATORY SERVICES - [facility] CALCIUM 9.4 8.6 - 10.2 mg/dL 07/06/2017 11:27 AM [facility] LABORATORY [facility] - [facility] BUN 17 8 - 23 mg/dL 07/06/2017 11:[address] [facility] - [facility] CREATININE 0.80 0.51 - 0.95 mg/dL 07/06/2017 11:27 AM [facility] [employer] [facility] Comment: The GFR result is not clinically significant on patients <18 or >70 years of age. GLUCOSE 80 74 - 99 mg/dL 07/06/2017 11:27 AM [facility] [employer] [facility] GFR >60 mL/min/1.7 3 sq meter 07/06/2017 11:27 AM [facility] [employer] [facility] Comment: eGFR has not been [...] 3 sq meter 07/06/2017 11:[address] [facility] [employer] [facility] ANION GAP 14 8 - 16 mmol/L 07/06/2017 11:27 AM [facility] [employer] [facility] Blood Venipuncture / Unknown 07/06/2017 7:12 AM CDT 07/06/2017 10:15 AM CDT us Allen Martinez MD CHEMISTRY ORDERABLES Final R esult [facility] [employer] [facility]# [id number] [address] [facility] [place] [address] * BRAIN NATRIURETIC PEPTIDE, BNP OR PROBNP (07/06/2017 7:12 AM CDT) PROBNP, N TERMINAL <50 <449 pg/mL 2017 11:[address] [facility] [employer] [facility] Comment: Reference values for screening purposes based on industrial seamstress's recommendation: Patients less than 75 years: <125 [...] Martinez MD CHEMISTRY ORDERABLES Final R esult [facility] [employer] [facility]# [id number] [address] [facility] [address] documented in this encounter Visit Diagnoses Diagnosis Essential (primary) hypertension Unspecified essential hypertension documented in this encounter
--- OUTSIDE RECORDS SUMMARY | 2024-08-15 13:35 | XMS_ITS | Clinical Summary ---
Author Organization [facility] Address [address] [place] [address] Phone Care Team Providers Care Chin Strap Sewer Name Role Phone Unavailable Primary Care Provider Unavailabl e Medications albuterol sulfate 90 mcg/Actuation inhaler INHALE 1 PUFF BY MOUTH EVERY 4 HOURS NEEDED FOR SHORTNESS OF BREATH OR WHEEZING 6.7 Gram 11/04/2021 2:36 PM CDT 2 Active fluticasone propionate (FLONASE) 50 mcg/spray [place], Suspension nasal inhaler INSTILL 1 SPRAY INTO [...] as directed 75 mL 03/22/2022 12:28 PM CANDLE WICKER 3 Active azithromycin (ZITHROMAX) 250 mg tablet Take two tablets by mouth on day 1, then take one tablet by mouth on days 2-5 6 Tablet 03/22/2022 12:28 PM CANDLE WICKER 3 Active benzonatate (TESSALON) 100 mg capsule Take 1 Capsule (100 mg) by mouth 3 times daily as needed for cough 20 Capsule 03/22/2022 12:28 PM CANDLE WICKER 3 Active predniSONE (DELTASONE) 20 mg tablet Take 1 Tablet (20 mg) by mouth daily for 5 days 5 Tablet 03/22/2022 12:28 PM CANDLE WICKER 3 Active codeine-guaiFENes in (ROBITUSSIN-AC) 10-100 mg/5 mL Liquid Take 5 mL by mouth every 6 hours as needed FOR COLD SYMPTOMS. 237 mL 04/04/2022 2:19 PM CANDLE WICKER 3 Active celecoxib (CeleBREX) 200 mg capsule Take 1 Capsule (200 mg) by mouth 2 times daily. 180 Capsule 4 Active benzonatate (TESSALON) 100 mg capsule Take 2 Capsules (200 mg) by mouth 3 times daily as needed for cough. 60 Capsule 4 Active fluticasone propionate (FLONASE) 50 mcg/spray [place], Suspension nasal inhaler ADMINISTER 1 SPRAY IN [...]
--- OUTSIDE RECORDS SUMMARY | 2024-08-15 13:35 | XMS_ITS | Encounter Summary ---
Author Organization [facility] Address [address] [place] [address] Care Team Providers Care Articulation Officer Name Role Phone Unavailable Primary Care Provider Unavailabl e Encounter Details Date Type Department Care Team (Late st Contact Info) Description 06/29/2017 Lab Requisition [facility] [address] [place] [address] Allen Martinez MD [address] [place] [address] Encounter for general adult medical [...] 25 HYDROXY (06/29/2017 6:24 AM CDT) Pathologist [facility] VITAMIN D TOTAL (25OH) 41 30 - 100 ng/mL 06/29/2017 10:35 AM CDT [facility] [employer] [facility] Blood Venipuncture / Unknown 06/29/2017 6:24 AM CDT 06/29/2017 8:42 AM CDT Narrative [facility] - 06/29/2017 10:35 AM CDT Interpretive Data Chart: Deficient: 0 - 20 ng/mL Insufficient: 21 - 29 ng/mL Sufficient: 30 - 100 ng/mL Increased Risk of Hypercalciuria: >100 ng/mL Toxic: >150 ng/mL Allen Martinez MD CHEMISTRY ORDERABLES Final R esult Performing Organization Address [facility]/ZIP Co de Phone Number [facility] CLAK# [id number] [address] [place] [address] * TSH (06/29/2017 6:24 AM CDT) Pathologist [facility] TSH 2.22 0.27 - 4.20 uIU/mL 06/29/2017 10:21 AM CDT [facility] [employer] [facility] Blood Venipuncture / Unknown 06/29/2017 6:24 AM CDT 06/29/2017 8:42 AM CDT Allen Martinez MD CHEMISTRY ORDERABLES Final R esult Performing Organization Address [facility]/ZIP Co de Phone Number [facility]# [id number] [address] [place] [address] * T4 FREE (06/29/2017 6:24 AM CDT) Pathologist [facility] T4 FREE 1.19 0.90 - 1.70 ng/dL 06/29/2017 10:21 AM CDT [facility] LABORATORY SERVICES - [facility] Blood Venipuncture / Unknown 06/29/2017 6:24 AM CDT 06/29/2017 8:42 AM CDT Allen Martinez MD CHEMISTRY ORDERABLES Final R esult [facility] [employer] SERVICES [facility] CLIA# [id number] [address] [facility] [place] [address] * (ABNORMAL) COMPREHENSIVE METABOLIC PANEL (06/29/2017 6:24 AM CDT) SODIUM 143 136 - 145 mmol/L 06/29/2017 10:16 AM [facility] [employer] SERVICES - . [facility] POTASSIUM 3.6 3.5 - 5.0 mmol/L 06/29/2017 10:16 AM [facility] [employer] - . [facility] CHLORIDE 101 98 - 107 mmol/L 06/29/2017 10:16 AM [facility] [employer] SERVICES - . [facility] CO2 30(H) 22 - 29 mmol/L 06/29/2017 10:16 AM T [employer] SERVICES - . [facility] CALCIUM 9.1 8.6 - 10.2 mg/dL 06/29/2017 10:16 AM T [employer] SERVICES - . [facility] BUN 10 8 - 23 mg/dL 06/29/2017 10:16 AM [facility] [employer] SERVICES - . [facility] CREATININE 0.78 0.51 - 0.95 mg/dL 06/29/2017 10:16 AM T [facility] LABORATORY SERVICES - . [facility] Comment: The GFR result is not clinically significant on patients <18 or >70 years of age. GLUCOSE 86 74 - 99 mg/dL 06/29/2017 10:16 AM T [employer] SERVICES - . [facility] TOTAL PROTEIN 6.8 6.7 - 8.6 g/dL 06/29/2017 10:16 AM [employer] SERVICES - . [facility] ALBUMIN 3.5 3.5 - 5.2 g/dL 06/29/2017 10:16 AM [employer] SERVICES - . [facility] BILIRUBIN TOTAL 0.4 0.2 - 1.1 mg/dL 06/29/2017 10:16 AM [facility] ALKALINE PHOSPHATASE 92 35 - 104 U/L 06/29/2017 10:16 AM [facility] AST 25 <33 U/L 06/29/2017 10:16 AM [facility] ALT 26 <34 U/L 06/29/2017 10:16 AM [facility] GFR >60 mL/min/1.7 3 sq meter 06/29/2017 10:16 AM [facility] Comment: eGFR has not been validated [...] mL/min/1.7 3 sq meter 06/29/2017 10:16 AM [facility] [employer] [facility] ANION GAP 12 8 - 16 mmol/L 06/29/2017 10:16 AM [facility] Blood Venipuncture / Unknown 06/29/2017 6:24 AM CDT 06/29/2017 8:42 AM CDT Narrative [facility] - 06/29/2017 10:16 AM CDT Samples containing indocyanine green cause interferences on Total and/or Direct Bilirubin and must not be measured. us Allen Martinez MD CHEMISTRY ORDERABLES Final R esult [facility]# [id number] [address] [place] [address] * (ABNORMAL) LIPID PANEL (06/29/2017 6:24 AM CDT) CHOLESTEROL 136 <200 mg/dL 06/29/2017 10:16 AM [facility] [employer] [facility] TRIGLYCERIDE 165(H) <150 mg/dL 06/29/2017 10:16 AM [facility] [employer] [facility] HDL 35(L) 40 - 59 mg/dL 06/29/2017 10:16 AM [facility] LDL CALCULATED 68 <100 mg/dL 06/29/2017 10:16 AM [facility] [employer] [facility] NON-HDL CHOLESTEROL 101 <130 mg/dL 06/29/2017 10:16 AM [facility] [employer] [facility] Blood Venipuncture / Unknown 06/29/2017 6:24 AM T 06/29/2017 8:42 AM CDT [facility] [employer] [facility] - 06/29/2017 10:16 AM CDT TOTAL CHOLESTEROL [...] Martinez MD CHEMISTRY ORDERABLES Final R esult [facility]# [id number] [address] [facility] [place] [address] * (ABNORMAL) CBC WITH DIFFERENTIAL (06/29/2017 6:24 AM CDT) Pathologist [facility] WBC 5.9 4.0 - 9.8 K/uL 06/29/2017 10:50 AM T [facility] [employer] [facility] RBC 3.90 3.90 - 4.90 M/uL 06/29/2017 10:50 AM [facility] [employer] [facility] HEMOGLOBIN 11.2(L) 11.8 - 14.8 g/dL 06/29/2017 10:50 AM CDT [facility] LABORATORY SERVICES - [facility] HEMATOCRIT 35.0(L) 35.5 - 44.0 % 06/29/2017 10:50 AM CDT [facility] LABORATORY SERVICES - . [facility] MCV 89.7 82.0 - 99.0 fL 06/29/2017 10:50 AM CDT [facility] LABORATORY SERVICES - [facility] MCH 28.7 27.2 - 32.6 pg 06/29/2017 10:50 AM CDT [facility] LABORATORY SERVICES - [facility] MCHC 32.0 31.5 - 35.5 g/dL 06/29/2017 10:50 AM CDT [facility] LABORATORY SERVICES - [facility] RDW 13.7 11.5 - 14.5 % 06/29/2017 10:50 AM CDT [facility] LABORATORY SERVICES - [facility] RDW-STDEV 45.1 37.1 - 48.7 fL 06/29/2017 10:50 AM [employer] [facility] LABORATORY SERVICES - [facility] PLATELETS 327 140 - 350 K/uL 06/29/2017 10:50 AM [employer] [facility] LABORATORY SERVICES - . [facility] MPV 10.6 9.3 - 12.4 fL 06/29/2017 10:50 AM [employer] [facility]ATORY SERVICES - [facility] NEUTROPHILS 58 % 06/29/2017 10:50 AM CDT [facility] - [facility] LYMPHOCYTES 26 % 06/29/2017 10:50 AM [employer] [facility] SERVICES - [facility] MONOCYTES 10 % 06/29/2017 10:50 AM [employer] [facility] - [facility] EOSINOPHILS 6 % 06/29/2017 10:50 AM CDT [facility] - [facility] BASOPHILS 1 % 06/29/2017 10:50 AM CDT [facility] SERVICES - [facility] IMMATURE GRANULOCYTES 0 % 06/29/2017 10:50 AM CDT [facility]ORY SERVICES - [facility] NEUTROPHIL ABSOLUTE 3.41 1.90 - 7.00 K/uL 06/29/2017 10:50 AM CDT [facility] SERVICES - [facility] LYMPHOCYTE ABSOLUTE 1.52 0.70 - 4.50 K/uL 06/29/2017 10:50 AM CDT [facility]ATORY SERVICES - [facility] MONOCYTE ABSOLUTE 0.58 0.10 - 1.30 K/uL 06/29/2017 10:50 AM CDT [facility]ATORY SERVICES - [facility] EOSINOPHIL ABSOLUTE 0.34 0.00 - 0.70 K/uL 06/29/2017 10:50 AM CDT [facility] LABORATORY SERVICES - . [facility] BASOPHILS ABSOLUTE 0.03 0.00 - 0.20 K/uL 06/29/2017 10:50 AM CDT [facility] LABORATORY SERVICES - . [facility] IMMATURE GRANULOCYTES ABSOLUTE 0.02 0.00 - 0.03 K/uL 06/29/2017 10:50 AM CDT [facility] LABORATORY SERVICES - [facility] Blood Venipuncture / Unknown 06/29/2017 6:24 AM CDT 06/29/2017 8:42 AM CDT Allen Martinez MD HEMATOLOGY ORDERABLES Final Result [facility] LABORATORY SERVICES [facility]# [id number] [address] [place] [address] documented in this encounter Visit Diagnoses Diagnosis Encounter for general adult medical examination without abnormal findings Routine general medical examination at a health care facility documented in this encounter
[2024-08-15 13:51] LABS: Basophils Percent Auto 0.3 % (0.2-1.2); Eosinophils Absolute Auto 0.2 K/mm3 (0-0.3); Hematocrit 42.7 % (37.0-47.0); Hemoglobin 13.6 g/dL (12.0-15.0); Immature Granulocyte Absolute 0.02 K/mm3 (0.00-0.031); Immature Granulocyte Percent A 0.2 % (0-0.5); Lymphocytes Absolute Auto 2.08 K/mm3 (0.9-3.2); Lymphocytes Percent Auto 22.7 % (18.3-44.2); Mean Corpuscular HGB Conc 31.9 g/dl (32-36); Mean Corpuscular Hemoglobin 29.8 pg (26-34); Mean Corpuscular Volume 93.4 fl (80-100); Mean Platelet Volume 11.4 fl (7.4-10.4); Monocytes Absolute Auto 0.7 K/mm3 (0.1-0.6); Neutrophils Absolute Auto 6.1 K/mm3 (1.3-6.7); Neutrophils Percent Auto 66.8 % (45.5-73.1); Platelet Count Result 268 k/mm3 (150-375); Red Blood Count 4.57 M/mm3 (4.2-5.4); White Blood Count 9.2 K/mm3 (4.5-10.0)
[2024-08-15 14:17] LABS: Albumin Level 4.5 g/dL (3.5-5.1)
[2024-08-15 14:38] LABS: Anion Gap 9 mmol/L (4-12); Blood Urea Nitrogen 19 mg/dL (7-17); Calcium 9.7 mg/dL (8.4-10.2); Carbon Dioxide 29 mmol/L (22-30); Chloride 101 mmol/L (98-107); Estimated Glomerular Filt Rate > 60; Glucose 96 mg/dL (65-110); Potassium 3.6 mmol/L (3.4-5.0); Sodium 139 mmol/L (137-145)
[2024-08-15 14:41] LABS: Urine Cotinine NEGATIVE
[2024-08-15 14:49] LABS: Hemoglobin A1C 5.1 % (<5.7)
[2024-08-15 15:02] LABS: MRSA (PCR) NOT DETECTED (NOT DETECTE)
== END 2024-08-15 12:13 | disposition home or self-care (01) ==
LOC: ANHSURGERY 12:20
PROVIDERS: Anesthesiology; PCP Physician Assistant; Visit Provider Orthopaedic Surgery
DX: Z01.812 Encounter for preprocedural laboratory examination (principal); M17.11 Unilateral primary osteoarthritis, right knee
CPT/HCPCS: 36415; 80048; 80307; 82040; 83036; 85025; 87641

== ENCOUNTER 2024-09-13 00:59 | Day surgery (SDC) | payer MEDICARE, OTHER, SELFPAY ==
--- NOTE | 2024-08-15 11:42 | PC.NURSE ---
Report to the Outpatient Waiting Room, entrance under the green pavilion located off [facility], at time __6:30 am on date _09/13/24 . Planned Procedure Time: __8:30 am .? Time changes happen often and if your time is changed the preop area will call you the afternoon before. - You and your visitor will be asked to self-screen and do not enter if you have any COVID symptoms. Please call surgeon if you need to reschedule. - A mask is optional within the hospital at this time. Patients may have clear liquids (water, carbonated beverages, clear teas, apple juice) until 3 hours prior to surgery ( 5:30 am) with a maximum of 20 ounces. - No food from midnight until time of surgery and no smoking, or chewing tobacco (or any form of nicotine). No chewing gum, candy or mints. - Take only the following medications with a SIP of water on the morning of surgery: ___AMLODIPINE DO NOT STOP ANY OF YOUR OTHER PRESCRIPTION MEDICATIONS PRIOR TO SURGERY EXCEPT THE FOLLOWING Hold all vitamins and supplements for 3 days per anesthesiologist.LAST DOSE 09/09/24 Medications to discontinue per physician NONE Date to take last dose MAY CONTINUE CELECOXIB PER DR MCCANN BUT DO NOT TAKE MORNING OF SURGERY Please no make-up, nail puerto rican, hairspray, perfume, deodorant, or body powder the day of surgery.? No jewelry (including any body piercings) or valuables the day of surgery, leave them at home.? Please take a shower or bath the night before, or the morning of, surgery with an antibacterial soap.? Wear comfortable, loose fitting clothing.? Children are encouraged to wear pajamas. - Jewelry must be removed prior to entering the operating room.? Rings and piercings that are not removed may be cut off. - The hospital will not accept responsibility for valuables.? - Please leave all valuables, including medications, at home the day of surgery. If you are going home after surgery, a licensed cdl a driver must drive you home.? - NO public transportation without another adult if you receive anesthesia. - We recommend that an adult stay with you for 24 hours following discharge. - We also recommend that you do not drive, make important decision, drink alcoholic beverages, or take any drugs that were not prescribed by your health care provider for at least 24 hours after your discharge time. Follow any additional instructions given to you from your surgeon. verbal and written instructions given to ___PATIENT_and SON TIM and asked if any additional questions and then verbalized understanding. Patient advised to call surgeon office or pre surgery nurse liaison [phone] if any additional questions.
[2024-08-15 12:26] VITALS: BMI 29.5
[2024-08-15 13:11] VITALS: BP 135/67; PULSE 71; RESP 18; TEMP 36.7; O2SAT 98
[2024-09-13] VITALS (12 sets, daily range): BP systolic 121–136; BP diastolic 48–69; PULSE 78–94; RESP 12–20; TEMP 35.8–36.9; O2SAT 92–100; BMI 30.1
--- NOTE | ~2024-09-13 | XR_ITS ---
EXAMINATION: [id number] DATE: 09/13/2024 11:20 INDICATION: Postoperative evaluation following right total knee arthroplasty. TECHNIQUE: Anteroposterior and lateral views of the right knee were obtained. COMPARISON: 07/12/2024 FINDINGS: Right total knee arthroplasty with patellar resurfacing appears well seated and in near anatomic alig nment. No fractures identified. Expected postoperative subcutaneous and intra-articular gas. Partial ly visualized distal tip of the femoral component of a right total hip arthroplasty IMPRESSION: 1. Right total knee arthroplasty, negative for postoperative purposes. Reviewed, dictated and finalized at location A.
--- OUTSIDE RECORDS SUMMARY | 2024-09-13 01:01 | XMS_ITS | Encounter Summary ---
Author Organization [employer] Address [address] [place] [address] Care Team Providers Care Accounting Machine Servicer Name Role Phone Unavailable Primary Care Provider Unavailabl e Encounter Details Date Type Department Care Team (Late st Contact Info) Description 07/06/2017 Lab Requisition [facility] [employer] Laboratory Services [address] [place] [address] Allen Martinez MD [address] [place] [address] Essential (primary) hypertension Social History [...] - 145 mmol/L 07/06/2017 11:27 AM CDT [facility] LABORATORY SERVICES - [facility] POTASSIUM 4.0 3.5 - 5.0 mmol/L 07/06/2017 11:27 AM CDT [facility] LABORATORY SERVICES - . [facility] CHLORIDE 98 98 - 107 mmol/L 07/06/2017 11:27 AM CDT [facility] LABORATORY SERVICES - . [facility] CO2 27 22 - 29 mmol/L 07/06/2017 11:27 AM CDT [facility] LABORATORY SERVICES - [facility] CALCIUM 9.4 8.6 - 10.2 mg/dL 07/06/2017 11:27 AM [facility]ATORY [facility] BUN 17 8 - 23 mg/dL 07/06/2017 11:[address] [facility] CREATININE 0.80 0.51 - 0.95 mg/dL 07/06/2017 11:27 AM [facility] [employer] [facility] Comment: The GFR result is not clinically significant on patients <18 or >70 years of age. GLUCOSE 80 74 - 99 mg/dL 07/06/2017 11:27 AM [facility] [employer] [facility] GFR >60 mL/min/1.7 3 sq meter 07/06/2017 11:27 AM [facility] [employer] [facility] Comment: eGFR has not been validated [...] 3 sq meter 07/06/2017 11:27 AM T [facility] [employer] [facility] ANION GAP 14 8 - 16 mmol/L 07/06/2017 11:27 AM [facility] [employer] [facility] Blood Venipuncture / Unknown 07/06/2017 7:12 AM CDT 07/06/2017 10:15 AM CDT us Allen Martinez MD CHEMISTRY ORDERABLES Final R esult [facility] [employer] [facility]# [id number] [address] [facility] [place] [address] * BRAIN NATRIURETIC PEPTIDE, BNP OR PROBNP (07/06/2017 7:12 AM CDT) PROBNP, N TERMINAL <50 <449 pg/mL 2017 11:27 AM CDT [facility] [employer] [facility] Comment: Reference values for screening purposes based on planning advisor's recommendation: Patients less than 75 years: <125 [...] Martinez MD CHEMISTRY ORDERABLES Final R esult [facility] [employer] [facility]# [id number] [address] [facility] [place] [address] documented in this encounter Visit Diagnoses Diagnosis Essential (primary) hypertension Unspecified essential hypertension documented in this encounter
--- OUTSIDE RECORDS SUMMARY | 2024-09-13 01:01 | XMS_ITS | Continuity of Care Document ---
Author Organization [facility] Address [address] [place] [address] [address] [place] [address] Phone Care Team Providers Care Mica Laminating Machine Feeder Name Role Phone Dion Cano Unavailable Unavailable Procedures Procedure Date Eye Exam & Treatment Visual Functional Status Assessed Refraction Advance Directives Directive Yes / No Effective Date File Name No Information Encounters Encounter Description Practice Location Reason(s) For Visit Diagnoses Date Provider Providers Copied on Encounter [facility], [id number] [place] [address] [address], [place], [place], [id number], [place] tel:[phone] [facility] No Information [address]ach[address]. [address] , [address], [place], [address], [place]. tel:[phone] Family History Family Member Type Diagnosis Age At Onset No Information Payers Payer name Insurance type Covered alliance party ID Authoriza tion(s) Medicare [facility] [id number] [facility] [id number] Social History Type Description Quantity Date Captured Comments Sex Female Smoking Status No Information Chief Complaint And Reason For Visit No Information Reason For Referral Reason For Referral No Information History Of Present Illness Encounter Date Complaint History Of Prese nt Illness No Information Functional Status Date Functional Assessmen t No Information Instructions Date Instruction Additional Infor mation No Information Assessments Type Assessment Date No Information Patient Care Teams Name Effective Dates (start - stop) Status Members No Information
--- OUTSIDE RECORDS SUMMARY | 2024-09-13 01:01 | XMS_ITS | Continuity of Care Document ---
Author Organization [facility] Address [address] [place] [address] [address] [place] [address] Phone Care Team Providers Care Security Associate Name Role Phone Allen PT,MPT,ATC, Fox Unavailable Unavai lable Procedures Procedure Date THERAPEUTIC EXERCISES MANUAL THERAPY Mobility: Walking And Moving Limitaion- Discharge Mobility: Walking And Moving Limitation- Goal Medications Name Dose Freq Route DOC Mar THERAPEUTIC EXERCISES MANUAL THERAPY THERAPEUTIC EXERCISES THERAPEUTIC EXERCISES THERAPEUTIC EXERCISES MANUAL THERAPY THERAPEUTIC EXERCISES MANUAL THERAPY THERAPEUTIC EXERCISES MANUAL THERAPY THERAPEUTIC EXERCISES MANUAL THERAPY THERAPEUTIC EXERCISES MANUAL THERAPY PT EVALUATION THERAPEUTIC EXERCISES Mobility: Walking And Moving Limitations -Curent Mobility: Walking And Moving Limitation- Goal Medications w/ Name Dose Freq NOT Route No Reason DOC Pain Assess Positive DOC 2015 BMI High F/U Plan DOC No Falls or 1 Fall w/o Injury Screened f or Fall Risk Functional Outcome Assessmen t documented, deficits identified, treatment plan es Advance Directives Directive Yes / No Effective Date File Name No Information Encounters Encounter Description Practice Location Reason(s) For Visit Diagnoses Date Provider Providers Copied on Encounter [facility], [address], [place], [place], [id number], [place] tel:[phone] [place] No Information 7 Alejandro [place]. , [place], [place]. [facility], [place], [place], [address], [place] tel:[phone] [place] No Information 7 Alejandro [place]. , [place], [place]. [facility], [place], [place], [address], [place] tel:[phone] [place] No Information 7 Ale[address]andro [place]. , [place], [place]. [facility], [place], [place], [address], [place] tel:[phone] [place] No Information 6 Alejandro [place]. , [place], [place]. [facility], [place], [place], [address], [place] tel:[phone] [place] No Information 6 Alejandro [place]. , [place], [place]. [facility], [place], [place], [address], [place] tel:[phone] [place] No Information 6 Alejandro [place]. , [place], [place]. [facility], [place], [place], [address], [place] tel:[phone] [place] No Information 6 Alejandro Fox. , [place], [place]. [facility], [place], [place], [address], [place] tel:[phone] [place] No Information 6 Alejandro Fox. , [place], [place]. [facility], [place], [place], [address], [place] tel:[phone] [place] No Information 6 Alejandro Braxton , [place], [place]. [facility], [address], [place], [place], [address], [place] tel:[phone] [place] Unspecified sprain of right hip, subsequent encounterPain in right hipPain in right knee 6 Allen [place], [place], [place]. Family History Family Member Type Diagnosis Age At Onset No Information Payers Payer name Insurance type Covered republican ID Authoriza tineil(s) [place] [id number] POC [id number] [employer] [id number] Social History Type Description Quantity Date Captured [...]
--- OUTSIDE RECORDS SUMMARY | 2024-09-13 01:02 | XMS_ITS | Clinical Summary ---
Author Organization [facility] Address [address] [place] [address] Phone Care Team Providers Care Dog Races Manager Name Role Phone Unavailable Primary Care Provider Unavailabl e Medications albuterol sulfate 90 mcg/Actuation inhaler INHALE 1 PUFF BY MOUTH EVERY 4 HOURS NEEDED FOR SHORTNESS OF BREATH OR WHEEZING 6.7 Gram 11/04/2021 2:36 PM CDT 2 Active fluticasone propionate (FLONASE) 50 mcg/spray [place], Suspension nasal inhaler INSTILL 1 SPRAY INTO [...] as directed 75 mL 03/22/2022 12:28 PM STUDENT EDUCATION SPECIALIST 3 Active azithromycin (ZITHROMAX) 250 mg tablet Take two tablets by mouth on day 1, then take one tablet by mouth on days 2-5 6 Tablet 03/22/2022 12:28 PM STUDENT EDUCATION SPECIALIST 3 Active benzonatate (TESSALON) 100 mg capsule Take 1 Capsule (100 mg) by mouth 3 times daily as needed for cough 20 Capsule 03/22/2022 12:28 PM STUDENT EDUCATION SPECIALIST 3 Active predniSONE (DELTASONE) 20 mg tablet Take 1 Tablet (20 mg) by mouth daily for 5 days 5 Tablet 03/22/2022 12:28 PM STUDENT EDUCATION SPECIALIST 3 Active codeine-guaiFENes in (ROBITUSSIN-AC) 10-100 mg/5 mL Liquid Take 5 mL by mouth every 6 hours as needed FOR COLD SYMPTOMS. 237 mL 04/04/2022 2:19 PM STUDENT EDUCATION SPECIALIST 3 Active celecoxib (CeleBREX) 200 mg capsule Take 1 Capsule (200 mg) by mouth 2 times daily. 180 Capsule 4 Active benzonatate (TESSALON) 100 mg capsule Take 2 Capsules (200 mg) by mouth 3 times daily as needed for cough. 60 Capsule 4 Active fluticasone propionate (FLONASE) 50 mcg/spray [place], Suspension nasal inhaler ADMINISTER 1 SPRAY IN [...] (3 - season) 07/13/202409/2023, 01/05/2023 INFLUENZA VACCINE (#1) 2024 01/14/2024, 2022 RSV VACCINE (60+ or ) Completed 05/24/2024 Insurance [employer]
--- OUTSIDE RECORDS SUMMARY | 2024-09-13 01:02 | XMS_ITS | Encounter Summary ---
[facility] Organization [facility] Address [address] [place] [address] Care Team Providers Care Real Estate Branch Manager Name Role Phone Unavailable Primary Care Provider Unavailabl e Encounter Details Date Type Department Care Team (Late st Contact Info) Description 06/29/2017 Lab Requisition [facility] General Laboratory Services [address] [place] [address] Allen Martinez MD [address] [place] [address] Encounter for general adult medical [...] 25 HYDROXY (06/29/2017 6:24 AM CDT) Pathologist [facility] VITAMIN D TOTAL (25OH) 41 30 - 100 ng/mL 06/29/2017 10:35 AM CDT [facility] [employer] [facility] Blood Venipuncture / Unknown 06/29/2017 6:24 AM CDT 06/29/2017 8:42 AM CDT Narrative [facility] - 06/29/2017 10:35 AM CDT Interpretive Data Chart: Deficient: 0 - 20 ng/mL Insufficient: 21 - 29 ng/mL Sufficient: 30 - 100 ng/mL Increased Risk of Hypercalciuria: >100 ng/mL Toxic: >150 ng/mL Allen Martinez MD CHEMISTRY ORDERABLES Final R esult Performing Organization Address [facility]/ZIP Co de Phone Number [facility] CLIN# [id number] [address] [place] [address] * TSH (06/29/2017 6:24 AM CDT) Pathologist [facility] TSH 2.22 0.27 - 4.20 uIU/mL 06/29/2017 10:21 AM CDT [facility] [employer] [facility] Blood Venipuncture / Unknown 06/29/2017 6:24 AM CDT 06/29/2017 8:42 AM CDT Allen Martinez MD CHEMISTRY ORDERABLES Final R esult Performing Organization Address [facility]/ZIP Co de Phone Number [facility]# [id number] [address] [place] [address] * T4 FREE (06/29/2017 6:24 AM CDT) Pathologist [facility] T4 FREE 1.19 0.90 - 1.70 ng/dL 06/29/2017 10:21 AM CDT [facility] LABORATORY SERVICES - [facility] Blood Venipuncture / Unknown 06/29/2017 6:24 AM CDT 06/29/2017 8:42 AM CDT Allen Martinez MD CHEMISTRY ORDERABLES Final R esult [facility] [employer] SERVICES [facility] CLIA# [id number] [address] [facility] [place] [address] * (ABNORMAL) COMPREHENSIVE METABOLIC PANEL (06/29/2017 6:24 AM CDT) SODIUM 143 136 - 145 mmol/L 06/29/2017 10:[address] [facility] [employer] [facility] - . [facility] POTASSIUM 3.6 3.5 - 5.0 mmol/L 06/29/2017 10:[address] [facility] [employer] - . [facility] CHLORIDE 101 98 - 107 mmol/L 06/29/2017 10:16 AM T [employer] [facility] - . [facility] CO2 30(H) 22 - 29 mmol/L 06/29/2017 10:16 AM T [employer] [facility] - . [facility] CALCIUM 9.1 8.6 - 10.2 mg/dL 06/29/2017 10:16 AM T [employer] [facility] - . [facility] BUN 10 8 - 23 mg/dL 06/29/2017 10:[address] [facility] [employer] [facility] - . [facility] CREATININE 0.78 0.51 - 0.95 mg/dL 06/29/2017 10:16 AM T [employer] LABORATORY SERVICES - . [facility] Comment: The GFR result is not clinically significant on patients <18 or >70 years of age. GLUCOSE 86 74 - 99 mg/dL 06/29/2017 10:16 AM T [employer] [facility] - . [facility] TOTAL PROTEIN 6.8 6.7 - 8.6 g/dL 06/29/2017 10:16 AM [employer] [facility] - . [facility] ALBUMIN 3.5 3.5 - 5.2 g/dL 06/29/2017 10:16 AM [employer] [facility] - . [facility] BILIRUBIN TOTAL 0.4 0.2 - 1.1 mg/dL 06/29/2017 10:16 AM [facility] ALKALINE PHOSPHATASE 92 35 - 104 U/L 06/29/2017 10:16 AM [facility] AST 25 <33 U/L 06/29/2017 10:16 AM [facility] ALT 26 <34 U/L 06/29/2017 10:16 AM [facility] GFR >60 mL/min/1.7 3 sq meter 06/29/2017 10:16 AM [facility] Comment: eGFR has not been validated [...] mL/min/1.7 3 sq meter 06/29/2017 10:16 AM [facility] [employer] [facility] ANION GAP 12 8 - 16 mmol/L 06/29/2017 10:16 AM [facility] Blood Venipuncture / Unknown 06/29/2017 6:24 AM CDT 06/29/2017 8:42 AM CDT Narrative [facility] - 06/29/2017 10:16 AM CDT Samples containing indocyanine green cause interferences on Total and/or Direct Bilirubin and must not be measured. us Allen Martinez MD CHEMISTRY ORDERABLES Final R esult [facility]# [id number] [address] [place] [address] * (ABNORMAL) LIPID PANEL (06/29/2017 6:24 AM CDT) CHOLESTEROL 136 <200 mg/dL 06/29/2017 10:16 AM [facility] [employer] [facility] TRIGLYCERIDE 165(H) <150 mg/dL 06/29/2017 10:16 AM [facility] [employer] [facility] HDL 35(L) 40 - 59 mg/dL 06/29/2017 10:16 AM [facility] LDL CALCULATED 68 <100 mg/dL 06/29/2017 10:16 AM [facility] [employer] [facility] NON-HDL CHOLESTEROL 101 <130 mg/dL 06/29/2017 10:16 AM [facility] [employer] [facility] Blood Venipuncture / Unknown 06/29/2017 6:24 AM T 06/29/2017 8:42 AM CDT [facility] [employer] [facility] - 06/29/2017 10:16 AM CDT TOTAL [...] Martinez MD CHEMISTRY ORDERABLES Final R esult [facility]# [id number] [address] [facility] [place] [address] * (ABNORMAL) CBC WITH DIFFERENTIAL (06/29/2017 6:24 AM CDT) Pathologist [facility] WBC 5.9 4.0 - 9.8 K/uL 06/29/2017 10:50 AM T [facility] [employer] [facility] RBC 3.90 3.90 - 4.90 M/uL 06/29/2017 10:50 AM [facility] [employer] [facility] HEMOGLOBIN 11.2(L) 11.8 - 14.8 g/dL 06/29/2017 10:50 AM CDT [employer] LABORATORY SERVICES - [facility] HEMATOCRIT 35.0(L) 35.5 - 44.0 % 06/29/2017 10:50 AM CDT [employer] LABORATORY SERVICES - . [facility] MCV 89.7 82.0 - 99.0 fL 06/29/2017 10:50 AM CDT [employer] LABORATORY SERVICES - [facility] MCH 28.7 27.2 - 32.6 pg 06/29/2017 10:50 AM CDT [employer] LABORATORY SERVICES - [facility] MCHC 32.0 31.5 - 35.5 g/dL 06/29/2017 10:50 AM CDT [employer] LABORATORY SERVICES - [facility] RDW 13.7 11.5 - 14.5 % 06/29/2017 10:50 AM CDT [employer] LABORATORY SERVICES - [facility] RDW-STDEV 45.1 37.1 - 48.7 fL 06/29/2017 10:50 AM [employer] LABORATORY SERVICES - [facility] PLATELETS 327 140 - 350 K/uL 06/29/2017 10:50 AM [employer] LABORATORY SERVICES - . [facility] MPV 10.6 9.3 - 12.4 fL 06/29/2017 10:50 AM [employer] LABORATORY SERVICES - [facility] NEUTROPHILS 58 % 06/29/2017 10:50 AM CDT [employer] LABORATORY SERVICES - [facility] LYMPHOCYTES 26 % 06/29/2017 10:50 AM [employer] LABORATORY SERVICES - [facility] MONOCYTES 10 % 06/29/2017 10:50 AM [employer] LABORATORY SERVICES - [facility] EOSINOPHILS 6 % 06/29/2017 10:50 AM CDT [employer] LABORATORY SERVICES - [facility] BASOPHILS 1 % 06/29/2017 10:50 AM CDT [employer] LABORATORY SERVICES - [facility] IMMATURE GRANULOCYTES 0 % 06/29/2017 10:50 AM CDT [employer] LABORATORY SERVICES - [facility] NEUTROPHIL ABSOLUTE 3.41 1.90 - 7.00 K/uL 06/29/2017 10:50 AM CDT [employer] LABORATORY SERVICES - [facility] LYMPHOCYTE ABSOLUTE 1.52 0.70 - 4.50 K/uL 06/29/2017 10:50 AM CDT [employer] LABORATORY SERVICES - [facility] MONOCYTE ABSOLUTE 0.58 0.10 - 1.30 K/uL 06/29/2017 10:50 AM CDT [employer] LABORATORY SERVICES - [facility] EOSINOPHIL ABSOLUTE 0.34 0.00 - 0.70 K/uL 06/29/2017 10:50 AM CDT [facility] LABORATORY SERVICES - . [facility] BASOPHILS ABSOLUTE 0.03 0.00 - 0.20 K/uL 06/29/2017 10:50 AM CDT [facility] LABORATORY SERVICES - . [facility] IMMATURE GRANULOCYTES ABSOLUTE 0.02 0.00 - 0.03 K/uL 06/29/2017 10:50 AM CDT [facility] LABORATORY SERVICES - [facility] Blood Venipuncture / Unknown 06/29/2017 6:24 AM CDT 06/29/2017 8:42 AM CDT Allen Martinez MD HEMATOLOGY ORDERABLES Final Result [id number] [address] [place] [address] documented in this encounter Visit Diagnoses Diagnosis Encounter for general adult medical examination without abnormal findings Routine general medical examination at a health care facility documented in this encounter
[2024-09-13] MEDS: ACETAMINOPHEN 500 MG TABLET 1000 MG PO (07:10)
--- NOTE | 2024-09-13 07:16 | WPDHPUPDATE1 ---
History and Physical Update Update Date/Time: 09/13/24 07:16 History and Physical has been reviewed, including an updated exam of the patient. There are NO changes in the patient's condition. Risks, benefits, and alternatives have been discussed and questions answered. Patient agrees to proceed with procedure.
[2024-09-13] MEDS: LACTATED RINGERS 1,000 ML 30 ML IV CONT ×2 (08:08→10:20)
[2024-09-13] MEDS: TRANEXAMIC ACID 1,000MG/ISO100 1,000 MG/100 ML BAG 200 MG IVPB (08:09)
--- NOTE | 2024-09-13 08:17 | P.PNAN_ITS ---
Anes - Initial Pre Proc Eval Procedure: Operation Date: 09/13/24 08:30 Proposed Procedures p Right Custom Total Knee Arthroplasty - Ignacio Dunn MD Date/Time: 09/13/24 08:17 Surgeon: Ignacio Dunn MD Pre Op Diagnosis: Prim O A Rt Knee Patient Data Age: 84 Gender: F Height: 1.61 m Weight: 78.4 kg Last Vital Signs Temp 98.5 F 09/13/24 07:41 Pulse 85 09/13/24 07:41 Resp 14 09/13/24 07:41 BP 132/69 09/13/24 07:41 Pulse Ox 97 09/13/24 07:41 O2 Del Method Room Air 09/13/24 07:41 Allergies Allergy/AdvReac Type Severity Reaction Status Date / Time No Known Allergies Allergy Verified 09/13/24 07:32 Home Medications ?Medication ?Instructions ?Recorded ?Confirmed ?Type cholecalciferol (vitamin D3) 25 1,000 unit PO DAILY 04/07/19 09/13/24 History mcg (1,000 unit) capsule multivitamin 1 tablet PO DAILY 04/07/19 09/13/24 History amlodipine 5 mg tablet See Rx Instructions .Route 05/24/24 09/13/24 Rx .COMPLEX #100 tabs losartan 100 See Rx Instructions .Route 05/24/24 08/15/24 Rx mg-hydrochlorothiazide 12.5 mg .COMPLEX #100 tabs tablet celecoxib 200 mg capsule See Rx Instructions .Route 07/18/24 09/13/24 Rx .COMPLEX #180 caps atorvastatin 40 mg tablet 40 mg PO DAILY 08/15/24 08/15/24 History Laboratory Tests 09/13/24 07:01 Blood Type B Positive Antibody Screen Pending Patient hx anesthesia problems: post op nausea/vomiting Family hx anesthesia problems: none Results Review: All pre-operative results and documents have been reviewed as part of the pre- operative evaluation. [facility] Past Medical History Medical History Bronchitis Mixed hyperlipidemia Sprain of right hip Recurrent UTI Pyelonephritis Primary osteoarthritis of right knee Primary osteoarthritis of right hip Primary osteoarthritis of left hip Osteoporosis Hip pain, right Essential (primary) hypertension E. coli infection Dietary counseling and surveillance (07/16/17) Bruit of right carotid artery Back pain at L4-L5 level Arthritis of knee Aftercare following joint replacement surgery Acute pain of right knee Cough Wheezing Postmenopausal Nondisp fracture of fifth right metatarsal bone with delayed healing Cataract, left eye Abdominal pain Bronchitis Kidney stone H/O Middleton's palsy Arthritis Mixed hyperlipidemia Benign reactive hypertension Surgical History Surgical History Status post total replacement of left hip Presence of right artificial hip joint Presence of both artificial hip joints S/P right knee arthroscopy H/O: hysterectomy Hx of cataract extraction Hx laparoscopic cholecystectomy H/O total hip arthroplasty R- with later revision L QUOC recent Social History Social History Social History: Smoking status: Never smoker Second hand tobacco smoke exposure: No Additional smoking assessment comments: DENIES ANY FORM OF TOBACCO USE Alcohol intake: current Alcohol use details: Occasionally Substance use: never Substance use type: does not use Lack of Transportation: No Lack of Food: Never True Current Housing: I Have Housing Concerned About Future Housing: No Difficulty Paying Gas/Electric Bills: No Difficulty Paying for Meds: No Currently Unemployed: YES Education: Don't Know Difficulty w/ Childcare or Family Care: No Living arrangements: alone Occupation/Education: retired Gender identity (if verbalized by the patient): Female Sexual Orientation (if Verbalized by the Patient): Straight or Heterosexual Spiritual care concerns: No Agree to blood products: Yes Anes - Eval Final PreProcedure Day of Procedure 09/13/24 08:17 Patient weight: normal Heart: regular rate and rhythm Lungs: clear to auscultation Airway: Mallampati scale class II Neurological: alert and oriented Last oral intake: >/= 8 hours ASA classification: III Emergent: no Anesthetic plan: proceed Anesthesia type and monitoring: general LMA and standard monitoring Results Review: All pre-operative results and documents have been reviewed as part of the pre- operative evaluation. Informed Consent: The patient's anesthetic plan and its attendant risks and benefits were discussed with the patient/family/POA. Questions were solicited and answers provided to the satisfaction of the patient/family/POA.
[2024-09-13] MEDS: ceFAZolin 2 GM/D5W 50 ML 2 GM/50 ML BAG IVPB ×3 (08:26→23:08)
[2024-09-13] MEDS: SODIUM CHLORIDE 0.9% IV 37.7 ML, MORPHINE SULFATE INJ (*CRX) 2 MG, ROPivacaine HCL 1% 2... INFILTRATE (09:03)
[2024-09-13] MEDS: TRANEXAMIC ACID 1,000 MG/10 ML AMPUL 1000 MG IV PUSH (10:07)
[2024-09-13] MEDS: fentaNYL CITRATE INJ (*CRX) 100 MCG/2 ML VIAL 25 MCG IV PUSH ×6 (10:44→11:10)
--- NOTE | 2024-09-13 12:14 | ADMGEN ---
This patient, Asia Woodruff, was admitted to 3 [facility] Surg Room 302-01. Patient/family oriented to hospital policies and general routines including ID bracelet, bed and alarms, visiting hours, pain management, procedures, bathroom and other care routines, personal items, smoking policy, room service/diet, and visiting hours. Information on how to activate the Rapid Response Team has been discussed. Patient/Family are encouraged to report perceived risks to care and to ask questions if they do not understand what they are told or what they should do. received report from [facility].
[2024-09-13] MEDS: ATORVASTATIN 40 MG TABLET PO (12:27)
[2024-09-13] MEDS: SENNA/DOCUSATE SODIUM TABLET 2 TAB PO ×2 (12:27→16:04)
[2024-09-13] MEDS: oxyCODONE/ACETAMINOPHEN (*CRX) 10-325 MG TABLET 1 TAB PO (12:28)
[2024-09-13] MEDS: ASPIRIN 81 MG ENTERIC TABLET PO ×2 (12:28→21:00)
[2024-09-13] MEDS: MULTIVITAMINS THERAPEUTIC TAB (*BKC) 1 TABLET PO (12:28)
[2024-09-13] MEDS: SODIUM CHLORIDE 0.9% IV 1,000 ML 125 ML IV CONT (12:36)
--- NOTE | 2024-09-13 13:30 | W.PM.PROC2 ---
Procedure Note - Detailed Date of Procedure 09/13/24 Pre-op Diagnosis Right knee degenerative arthritis. Post-op Diagnosis Same Procedure Performed Custom total knee arthroplasty, right. Surgeon Ignacio Dunn MD Anesthesia General Findings Fair bone quality. No releases required. Optimal fit of the custom implant. Description of Procedure Preoperative antibiotics were given. The limb was prepped and draped in the usual sterile fashion with a well-padded tourniquet high on the thigh. The limb was exsanguinated and the tourniquet inflated to 300 mmHg during exposure and bone preparation. A longitudinal incision was created just medial to the patella. A trivector approach to the knee was performed. Arthrotomy was taken down through the joint capsule. No significant releases were initially taken. The femur was exposed and the F1 jig was applied. The coring tool was used to remove the cartilage for the F2 jig to sit flush with the bone. The jig was pinned and the distal cut carefully taken. Caliper measurements confirmed appropriate bony resections according to the preoperative templated plan. The F4 cutting jig for the femur was applied, at the standard rotation. The AP and anterior chamfer cuts were taken. The F5 jig was applied and the posterior chamfer cuts were taken. The tibia was prepared using the T1 jig, after removing cartilage for the jig contact points. Proper alignment was checked with the alignment michelle. The tibia was cut using the T1u guide. Gap balancing was performed. Gap measurements were taken and the knee was trialed. Excellent alignment and soft tissue balancing was confirmed. The posterior cruciate ligament was recessed along the proximal tibia. The patella was cut for resurfacing. Three lug holes were drilled. Meniscal remnants were removed. The trial components were assembled. Excellent range of motion and proper soft tissue balancing were confirmed throughout the full range of motion. Patellar tracking was excellent. The knee was copiously irrigated periodically throughout the procedure. The real implants were cemented into position. Excess cement was carefully removed. The wound was closed in layers with interrupted #1 Vicryl suture, 2-0 strata fix suture, 0 strata fix suture, 2-0 strata fix suture. Steri-Strips placed on the skin with the knee flexed. Sterile bulky dressing applied. The patient was brought to the recovery room in stable condition. There were no complications. Implants [employer] Custom total knee arthroplasty. Cemented. Cruciate retaining. 7B insert. 38 mm oval patella. Estimated Blood Loss 100 Tourniquet Time Total Tourniquet Time: 26 Drains No Complications No immediate complications Condition Stable Disposition PACU [facility] Billing Surgery - Charge Forward: Surgery Billing
[2024-09-13] MEDS: ONDANSETRON INJ 4 MG/2 ML VIAL IV PUSH ×2 (13:37→17:53)
[2024-09-13] MEDS: CELECOXIB 200 MG CAPSULE PO (16:04)
[2024-09-13] MEDS: oxyCODONE/ACETAMINOPHEN (*CRX) 5-325 MG TABLET 1 TABLET PO (21:00)
[2024-09-14 00:12] VITALS: BP 118/57; PULSE 87; RESP 14; TEMP 36.1; O2SAT 97
[2024-09-14 05:06] VITALS: BP 109/50; PULSE 83; RESP 14; TEMP 36.2; O2SAT 100
[2024-09-14 06:09] LABS: Hematocrit 36.2 % (37.0-47.0); Hemoglobin 11.4 g/dL (12.0-15.0); Immature Granulocyte Percent A 0.6 % (0-0.5); Lymphocytes Absolute Auto 1.31 K/mm3 (0.9-3.2); Mean Corpuscular HGB Conc 31.5 g/dl (32-36); Mean Corpuscular Hemoglobin 29.7 pg (26-34); Mean Corpuscular Volume 94.3 fl (80-100); Nucleated Red Blood Cells Absolute Auto 0.000 K/mm3 (0.0-0.012); Nucleated Red Blood Cells Perc 0.0 % (0.0-0.2); Platelet Count Result 239 k/mm3 (150-375); Red Blood Count 3.84 M/mm3 (4.2-5.4); White Blood Count 14.4 K/mm3 (4.5-10.0)
[2024-09-14 06:25] LABS: Anion Gap 7 mmol/L (4-12); Blood Urea Nitrogen 21 mg/dL (7-17); Calcium 8.9 mg/dL (8.4-10.2); Carbon Dioxide 26 mmol/L (22-30); Chloride 107 mmol/L (98-107); Estimated CRCL calculation 41 ml/min; Estimated Glomerular Filt Rate > 60; Glucose 101 mg/dL (65-110); Potassium 4.2 mmol/L (3.4-5.0); Sodium 140 mmol/L (137-145)
[2024-09-14 07:39] VITALS: BP 118/51; PULSE 88; RESP 18; TEMP 36.2; O2SAT 99
--- NOTE | 2024-09-14 08:16 | PM.PNORT ---
Progress Note: A&P Assessment and Plan (1) Status post total knee replacement, right: Code(s): Z96.651 - Presence of right artificial knee joint Status: Acute Plan Postop day 1 status post right total knee arthroplasty. Progressing well. Alert oriented. No distress. Walking well with a walker. Dressing intact. Calf nontender. Neurovascular status intact. Radiographs look good. She is progressing appropriately. Discharge planning reviewed. Subjective Subjective Date/Time Seen: 09/14/24 08:16 Objective Data Vital Signs Vital Signs: Vital Signs - 24 hr 09/13/24 10:20 09/13/24 10:30 09/13/24 10:45 Temperature 36.4 C L Pulse Rate 94 93 86 Respiratory Rate 12 13 12 Blood Pressure 131/50 L 126/48 L 136/54 L Pulse Oximetry 97 100 100 Oxygen Delivery Simple Face Mask Simple Face Mask Simple Face Mask Oxygen Flow Rate 10 10 10 09/13/24 11:00 09/13/24 11:15 09/13/24 11:35 Temperature 35.9 C L Pulse Rate 93 92 86 Respiratory Rate 17 20 16 Blood Pressure 135/60 128/66 133/53 L Pulse Oximetry 98 98 95 Oxygen Delivery Room Air Room Air Oxygen Flow Rate 09/13/24 11:50 09/13/24 12:20 09/13/24 13:20 Temperature 35.8 C L 36.2 C L 36.2 C L Pulse Rate 87 84 78 Respiratory Rate 16 19 18 Blood Pressure 131/53 L 121/49 L 126/50 L Pulse Oximetry 96 92 98 Oxygen Delivery Oxygen Flow Rate 09/13/24 13:35 09/13/24 17:06 09/13/24 20:00 Temperature Pulse Rate 81 Respiratory Rate 17 Blood Pressure 125/56 L Pulse Oximetry 99 Oxygen Delivery Room Air Room Air Oxygen Flow Rate 09/13/24 21:06 09/14/24 00:12 09/14/24 05:06 Temperature 36.2 C L 36.1 C L 36.2 C L Pulse Rate 88 87 83 Respiratory Rate 17 14 14 Blood Pressure 122/60 118/57 L 109/50 L Pulse Oximetry 100 97 100 Oxygen Delivery Oxygen Flow Rate 09/14/24 07:39 Temperature 36.2 C L Pulse Rate 88 Respiratory Rate 18 Blood Pressure 118/51 L Pulse Oximetry 99 Oxygen Delivery Oxygen Flow Rate Intake/Output Intake/Output: Intake & Output 09/11/24 09/12/24 09/13/24 09/14/24 23:59 23:59 23:59 23:59 Intake Total 460 Output Total 100 Balance 360 Meds/Results Medications: Active Medications Generic Name Dose Route Start Last Admin Trade Name Freq PRN Reason Stop Dose Admin Acetaminophen 500 mg 09/13/24 11:21 Acetaminophen 500 Mg Tablet PO Q6H PRN Pain Rated 1-3 Amlodipine Besylate 5 mg 09/14/24 09:00 Amlodipine Besylate 5 Mg Tablet BY MOUTH DAILY KEN Aspirin 81 mg 09/13/24 11:21 09/13/24 21:00 Aspirin 81 Mg Enteric Tablet PO 81 mg Q12HR KEN Administration Atorvastatin Calcium 40 mg 09/13/24 11:21 09/13/24 12:27 Atorvastatin 40 Mg Tablet PO 40 mg DAILY KEN Administration Celecoxib 200 mg 09/13/24 17:00 09/13/24 16:04 Celecoxib 200 Mg Capsule PO 200 mg BIDWM KEN Administration Diphenhydramine HCl 25 mg 09/13/24 11:21 Diphenhydramine Hcl Inj 50 Mg/Ml Vial IV PUSH Q6H PRN Itching Hydrochlorothiazide 12.5 mg 09/14/24 09:00 Hydrochlorothiazide 12.5 Mg Capsule PO QAM KEN Hydromorphone HCl 0.5 mg 09/13/24 12:03 Hydromorphone Hcl Inj (*Crx) 2 Mg/Ml Vial IV PUSH Q2H PRN Breakthrough Pain Rated 4-6 or NPO Hydromorphone HCl 1 mg 09/13/24 12:03 Hydromorphone Hcl Inj (*Crx) 2 Mg/Ml Vial IV PUSH Q2H PRN Breakthrough Pain Rated 7-10 or NPO Cefazolin Sodium 2 gm in 50 mls @ 100 mls/hr 09/13/24 16:00 09/13/24 23:08 Ancef 2 Gm/D5w 50 Ml IVPB 09/14/24 08:29 100 mls/hr Q8H KEN Administration Losartan Potassium 100 mg 09/14/24 09:00 Losartan Potassium 100 Mg Tablet PO DAILY [facility] Multivitamins Therapeutic 1 tablet 09/13/24 11:21 09/13/24 12:28 Multivitamins Therapeutic Tab (*Bkc) PO 1 tablet DAILY KEN Administration Naloxone HCl 0.1 mg 09/13/24 11:21 Naloxone Hcl 0.4 Mg/Ml Vial IV PUSH Q2M PRN Opiate Reversal Ondansetron HCl 4 mg 09/13/24 11:21 09/13/24 17:53 Ondansetron Inj 4 Mg/2 Ml Vial IV PUSH 4 mg Q4H PRN Administration Nausea And Vomiting Oxycodone/Acetaminophen 1 tablet 09/13/24 11:21 09/13/24 21:00 Oxycodone/Acetaminophen (*Crx) 5-325 Mg Tablet PO 1 tablet Q4H PRN Administration Pain Rated 4-6 Oxycodone/Acetaminophen 1 tab 09/13/24 11:21 09/13/24 12:28 Oxycodone/Acetaminophen (*Crx) 10-325 Mg Tablet PO 1 tab Q6H PRN Administration Pain Rated 7-10 Polyethylene Glycol 17 gm 09/13/24 11:21 09/13/24 12:27 Polyethylene Glycol 3350 17 Gm Powd.Pack PO 17 gm QAM KEN Administration Prednisone 5 mg 09/13/24 17:00 09/13/24 16:04 Prednisone 5 Mg Tablet PO 5 mg DAILY@1700 [facility] Administration Senna/Docusate Sodium 2 tab 09/13/24 11:21 09/13/24 16:04 Senna/Docusate Sodium Tablet PO 2 tab BID KEN Administration Vitamin D 25 mcg 09/14/24 09:00 Cholecalciferol (Vitamin D3) 25 Mcg (1,000 Units) Tablet PO DAILY [facility] Radiology Results: ITS Impressions Knee X-Ray 09/13/24 11:29 IMPRESSION: 1. Right total knee arthroplasty, negative for postoperative purposes. Labs Labs: Laboratory Results - last 24 hr 09/13/24 09/14/24 07:01 05:14 WBC 14.4 H RBC 3.84 L Hgb 11.4 L Hct 36.2 L MCV 94.3 MCH 29.7 MCHC 31.5 L RDW 13.2 Plt Count 239 MPV 11.9 H Immature Gran % (Auto) 0.6 H Neut % (Auto) 80.2 H Lymph % (Auto) 9.1 L Dixon % (Auto) 9.9 H Eos % (Auto) 0.0 Baso % (Auto) 0.2 Lymph # (Auto) 1.31 Dixon # (Auto) 1.4 H Eos # (Auto) 0.0 Baso # (Auto) 0.0 Abs Immat Gran (auto) 0.09 H Absolute Neuts (auto) 11.6 H Absolute Nucleated RBC 0.000 Nucleated RBC % 0.0 Sodium 140 Potassium 4.2 Chloride 107 Carbon Dioxide 26 Anion Gap 7 BUN 21 H Creatinine 0.86 Estim Creat Clear Calc 41 Estimated GFR > 60 Glucose 101 Calcium 8.9 Antibody Screen Negative
[2024-09-14] MEDS: ATORVASTATIN 40 MG TABLET PO (08:35)
[2024-09-14] MEDS: CELECOXIB 200 MG CAPSULE PO (08:35)
[2024-09-14] MEDS: CHOLECALCIFEROL (VITAMIN D3) 25 MCG (1,000 UNITS) TABLET PO (08:35)
[2024-09-14] MEDS: ASPIRIN 81 MG ENTERIC TABLET PO (08:35)
[2024-09-14] MEDS: MULTIVITAMINS THERAPEUTIC TAB (*BKC) 1 TABLET PO (08:36)
[2024-09-14] MEDS: LOSARTAN POTASSIUM 100 MG TABLET PO (08:36)
[2024-09-14] MEDS: SENNA/DOCUSATE SODIUM TABLET 2 TAB PO (08:36)
[2024-09-14] MEDS: oxyCODONE/ACETAMINOPHEN (*CRX) 10-325 MG TABLET 1 TAB PO (08:37)
[2024-09-14] MEDS: ceFAZolin 2 GM/D5W 50 ML 2 GM/50 ML BAG IVPB (08:38)
[2024-09-14 10:11] VITALS: O2SAT 97
--- NOTE | 2024-09-14 11:30 | PC.NURSE ---
This RN agrees with the cares and charting given to pt by license pending RN.
== END 2024-09-14 11:20 | disposition home or self-care (01) ==
LOC: ANHSURGERY 06:39 → ANH3MEDSUR 12:00
PROVIDERS: PCP Physician Assistant; Visit Provider Orthopaedic Surgery
PROC: (CPT 27447; principal; 2024-09-13 08:30)
DX: M17.11 Unilateral primary osteoarthritis, right knee (principal); E78.2 Mixed hyperlipidemia; M16.0 Bilateral primary osteoarthritis of hip; M81.0 Age-related osteoporosis without current pathological fracture; I10 Essential (primary) hypertension; Z79.1 Long term (current) use of non-steroidal anti-inflammatories (NSAID); Z98.890 Other specified postprocedural states; Z90.49 Acquired absence of other specified parts of digestive tract; Z87.442 Personal history of urinary calculi
CPT/HCPCS: 27447; 36415; 73560; 80048; 85025; 86850; 86900; 86901; 97110; 97116; 97161; 97165; 97530; 97535; A9270; C1713; C1776; J0171; J0690; J1100; J1885; J2003; J2270; J2405; J2704; J2795; J3010; J7030; J7120; J7512